=== PATIENT | male | born 1950 | race Caucasian/White ===

== ENCOUNTER 2017-07-28 18:20 | Inpatient (IN) ==
[2017-07-28] MEDS ORDERED: Ondansetron 4 MG/2 ML VIAL IVP ONE (19:23)
[2017-07-28] MEDS ORDERED: *HR* HYDROmorphone (PF) 1 MG/ML SYRINGE IVP ONE ×2 (19:23→22:31)
[2017-07-28] MEDS ORDERED: 0.9 % Sodium Chloride 1,000 ML IVC ONE (19:25)
--- NOTE | 2017-07-28 19:33 | Emergency Department Note ---
Disposition Clinical Impression: Fall, Back injury, Thoracic compression fracture, Lumbar compression fracture, Frail elderly Disposition: Admitted As Inpatient Referrals: Tab Starks Jr, MD [Primary Care Provider] - Forms: ED Satisfaction Letter General Adult HPI - General Chief complaint: ED Back Pain/Injury Stated complaint: fell off roof/back pain Time Seen by Provider: 07/28/17 18:57 Source: patient Limitations: no limitations - History of Present Illness HPI Narrative: 67-year-old male reports to the emergency department complaining he fell off a roof. He was about 9 or 10 feet up on a ladder when the ladder tipped backwards and he fell onto a deck. The patient complains of severe lower back pain. There is no history of loss of urine or stool. No weakness or numbness of the arms or legs. There is no history of laceration. He is not anticoagulated. There is no history of anterior chest pain or abdominal pain. Active pain is described. No loss of consciousness or confusion. The patient was in his usual good state of health prior to the event. He reports his male band sewer tried to break his fall but he fell hard onto the deck material. He describes the ladder tipping backwards and him falling over with it. Pain Scale: 10 - Related Data Home Medications Medication Instructions Recorded Confirmed Budesonide/Formoterol 80/4.5 2 puff IH BID 03/11/16 07/28/17 [Symbicort 80/4.5] Cyclobenzaprine [Flexeril] 10 mg PO TID PRN 03/11/16 07/28/17 Diclofenac Sodium [Voltaren] 1 appl TP TID PRN 03/11/16 07/28/17 OxyCODONE/APAP 5/325 [Percocet 1 - 2 tab PO Q6HR PRN 03/11/16 07/28/17 5/325 MG] Albuterol Sulfate [Proair Hfa] 1 puff IH DAILY 03/23/16 07/28/17 Ibuprofen [Motrin] 800 mg PO TID PRN 03/23/16 07/28/17 Losartan Potassium [Cozaar] 100 mg PO DAILY 03/23/16 07/28/17 Previous Rx's Medication Instructions Recorded Aspirin 81 mg PO DAILY #30 tab.chew 03/13/16 Carvedilol [Coreg] 12.5 mg PO BID #60 tablet 03/13/16 Isosorbide MONOnitrate (24 HR) 30 mg PO DAILY #30 tab.er.24h 03/13/16 [Imdur] Nitroglycerin 0.4 mg SL Q5MIN PRN #30 tab.subl 03/13/16 amLODIPine [Norvasc] 10 mg PO DAILY #30 tablet 03/13/16 Allergies Allergy/AdvReac Type Severity Reaction Status Date / Time codeine Allergy Irritable Verified 07/28/17 18:51 Sulfa (Sulfonamide Allergy Hives Verified 07/28/17 18:51 Antibiotics) All systems ED: reviewed and negative except as stated. Past Medical History - Past Medical History Medical history: Reports: COPD, coronary artery disease, hepatitis, hypertension Surgical history: Reports: appendectomy, cholecystectomy, orthopedic, other Psychiatric history: Reports: no psych history - Social History Smoking Status: Never smoker Smokeless Tobacco Status: No Alcohol use: Reports: occasionally Drug use: Reports: none Physical Exam - General Limitations: no limitations General appearance: alert, anxious (Appears to be uncomfortable, nearly crying) - Head Head exam: atraumatic, normocephalic, normal inspection - Eye Eye exam: Present: normal appearance, PERRL, EOMI. Absent: scleral icterus, conjunctival injection, nystagmus, miosis, mydriasis - ENT ENT exam: normal exam, normal oropharynx, mucous membranes moist, TM's normal bilaterally, normal external ear exam - Neck Neck exam: Present: normal inspection, full ROM, trachea midline. Absent: tenderness - Chest Chest inspection: Present: normal inspection, symmetric chest wall rise. Absent : tenderness - Respiratory Respiratory exam: Present: normal lung sounds bilaterally. Absent: respiratory distress, wheezes, accessory muscle use, prolonged expiratory phase - Cardiovascular Cardiovascular exam: Present: regular rate, normal rhythm, normal heart sounds - Abdominal Exam Abdominal exam: Present: soft, Non-Tender, normal bowel sounds. Absent: tenderness, distention, guarding, rebound, rigidity - Extremities Exam Extremities exam: Present: normal inspection, full ROM, normal capillary refill. Absent: tenderness, pedal edema, joint swelling, calf tenderness - Expanded Lower Extremity Exam Hip/Pelvis exam: Present: full ROM. Absent: tenderness Upper leg exam: Present: full ROM. Absent: tenderness Knee exam: Present: full ROM. Absent: tenderness Lower leg exam: Present: full ROM. Absent: tenderness Ankle exam: Present: full ROM. Absent: tenderness Foot/toe exam: Present: full ROM. Absent: tenderness Neurovascular/Tendon exam: Present: normal capillary refill. Absent: pulse deficit, motor deficit, sensory deficit, tendon deficit, extremity cold to touch , pallor - Back Exam Back exam: Present: normal inspection, tenderness, vertebral tenderness. Absent : CVA tenderness (R), CVA tenderness (L) - Neurological Exam Neurological exam: Present: alert, oriented X3, CN II-XII intact. Absent: motor sensory deficit - Skin Skin exam: Present: warm, dry, intact, normal color. Absent: rash, cyanosis, diaphoresis, erythema, pallor, mottled Course Vital Signs Temperature 98.8 F 07/28/17 18:52 Pulse Rate 73 07/28/17 18:52 Respiratory Rate 20 07/28/17 18:52 Blood Pressure 194/87 07/28/17 18:52 O2 Sat by Pulse Oximetry 97 07/28/17 18:52 Temperature 98.8 F 07/28/17 18:52 Pulse Rate 91 07/28/17 21:37 Respiratory Rate 16 07/28/17 21:37 Blood Pressure 178/91 07/28/17 21:37 O2 Sat by Pulse Oximetry 97 07/28/17 18:52 Oxygen Delivery Oxygen Delivery Room Air Medical Decision Making - [facility] Narrative Medical decision making narrative: The patient appears to be very uncomfortable in the ED, he was given Dilaudid and Zofran. He appears to have acute thoracic and lumbar compression fractures. He is neurologically intact. Based on his level of pain, age, and apparent acute fractures in more than one part of the spine, I thought it would be appropriate to admit the patient to the hospital for pain control. I discussed the case with Dr. Vidal, orthopedist cardiothoracic surgeon, who will act as sr technical sales consultant, I reviewed the case with Dr. Mckinley, hospitalist who has accepted the patient to his care. The patient is currently stable. Patient and family are favorable for admission. - Lab Data Lab results reviewed: Yes I reviewed the patient's lab results. Result diagrams: 07/28/17 19:42 07/28/17 19:42 Lab Results 07/28/17 07/28/17 07/28/17 Range/Units 19:00 19:42 19:42 WBC 11.0 (4.3-11.1) K/mcL RBC 4.35 (4.19-5.50) M/mcL Hgb 13.9 (12.9-16.9) g/dL Hct 40.4 (37.5-50.1) % MCV 92.9 (83.0-100.0) fL MCH 32.0 (28.0-33.3) pg MCHC 34.4 (31.6-35.5) g/dL RDW 12.2 (11.5-14.5) % Plt Count 205 (140-400) K/mcL MPV 10.1 (9.4-12.4) fL Immature Gran % 1.3 (0-4) % Seg Neutrophils % 78.0 % Lymphocytes % 12.2 % Monocytes % 7.3 % Eosinophils % 0.9 % Basophils % 0.3 % Neutrophils # 8.6 (1.6-8.9) K/mcL Lymphocytes # 1.4 (0.6-4.6) K/mcL Monocytes # 0.8 (0.0-1.3) K/mcL Eosinophils # 0.1 (0.0-0.6) K/mcL Basophils # 0.0 (0.0-0.2) K/mcL Immature Plt Fraction 4.9 (1.1-6.1) % PT 11.5 (9.4-12.1) Seconds INR 1.1 APTT 28.0 (26.0-36.0) Seconds Sodium (136-145) mEq/L Potassium (3.5-4.5) mEq/L Chloride (98-109) mEq/L Carbon Dioxide (19-29) mEq/L BUN (8-26) mg/dL Creatinine (0.72-1.25) mg/dL Est GFR ( Amer) (> 60) Est GFR (Non-Af Amer) (> 60) BUN/Creatinine Ratio (6-26) Glucose (70-99) mg/dL Calculated Osmolality (280-300) Calcium (8.6-10.8) mg/dL Total Bilirubin (0.2-1.2) mg/dL Direct Bilirubin (0.0-0.5) mg/dL Indirect Bilirubin (0.0-1.2) mg/dL AST (5-34) Units/L ALT (0-55) Units/L Alkaline Phosphatase (38-126) Units/L Serum Total Protein (6.0-8.3) g/dL Albumin (3.5-5.0) g/dL Globulin (2.4-3.5) g/dL Albumin/Globulin Ratio (1.1-2.2) Lipase (8-78) Units/L Urine Color Dark Yellow (Yellow) Urine Clarity Clear (Clear) Urine pH 6.0 (5.0-8.0) pH Units Ur Specific [place] > 1.030 H (1.010-1.025) Urine Protein 30 H (Neg-Trace) mg/dL Urine Glucose (UA) Normal (Normal) mg/dL Urine Ketones Trace H (Negative) mg/dL Urine Blood Negative (Negative) Urine Nitrite Negative (Negative) Urine Bilirubin Small H (Negative) Urine Urobilinogen Normal (Normal) mg/dL Ur Leukocyte Esterase Negative (Negative) Urine Microscopic RBC 3-5 H (0-3) per hpf Urine Microscopic WBC 5-15 H (0-3) per hpf Ur Squamous Epith Cells Many H (None-Few) per lpf Urine Bacteria None Seen (None-Few) per hpf Hyaline Casts None Seen (None-Few) per lpf Ur Culture Indicated? NO (NO) 07/28/17 Range/Units 19:42 WBC (4.3-11.1) K/mcL RBC (4.19-5.50) M/mcL Hgb (12.9-16.9) g/dL Hct (37.5-50.1) % MCV (83.0-100.0) fL MCH (28.0-33.3) pg MCHC (31.6-35.5) g/dL RDW (11.5-14.5) % Plt Count (140-400) K/mcL MPV (9.4-12.4) fL Immature Gran % (0-4) % Seg Neutrophils % % Lymphocytes % % Monocytes % % Eosinophils % % Basophils % % Neutrophils # (1.6-8.9) K/mcL Lymphocytes # (0.6-4.6) K/mcL Monocytes # (0.0-1.3) K/mcL Eosinophils # (0.0-0.6) K/mcL Basophils # (0.0-0.2) K/mcL Immature Plt Fraction (1.1-6.1) % PT (9.4-12.1) Seconds INR APTT (26.0-36.0) Seconds Sodium 142 (136-145) mEq/L Potassium 4.0 (3.5-4.5) mEq/L Chloride 107 (98-109) mEq/L Carbon Dioxide 25 (19-29) mEq/L BUN 15 (8-26) mg/dL Creatinine 0.97 (0.72-1.25) mg/dL Est GFR ( Amer) > 60 (> 60) Est GFR (Non-Af Amer) > 60 (> 60) BUN/Creatinine Ratio 15 (6-26) Glucose 104 H (70-99) mg/dL Calculated Osmolality 295 (280-300) Calcium 10.0 (8.6-10.8) mg/dL Total Bilirubin 1.0 (0.2-1.2) mg/dL Direct Bilirubin 0.5 (0.0-0.5) mg/dL Indirect Bilirubin 0.5 (0.0-1.2) mg/dL AST 51 H (5-34) Units/L ALT 43 (0-55) Units/L Alkaline Phosphatase 91 (38-126) Units/L Serum Total Protein 7.1 (6.0-8.3) g/dL Albumin 4.2 (3.5-5.0) g/dL Globulin 2.9 (2.4-3.5) g/dL Albumin/Globulin Ratio 1.4 (1.1-2.2) Lipase 13 (8-78) Units/L Urine Color (Yellow) Urine Clarity (Clear) Urine pH (5.0-8.0) pH Units Ur Specific [place] (1.010-1.025) Urine Protein (Neg-Trace) mg/dL Urine Glucose (UA) (Normal) mg/dL Urine Ketones (Negative) mg/dL Urine Blood (Negative) Urine Nitrite (Negative) Urine Bilirubin (Negative) Urine Urobilinogen (Normal) mg/dL Ur Leukocyte Esterase (Negative) Urine Microscopic RBC (0-3) per hpf Urine Microscopic WBC (0-3) per hpf Ur Squamous Epith Cells (None-Few) per lpf Urine Bacteria (None-Few) per hpf Hyaline Casts (None-Few) per lpf Ur Culture Indicated? (NO) - Radiology Data Radiology results reviewed: Yes I reviewed the patient's radiology results.
[2017-07-28 19:48] LABS: Basophils % 0.3 %; Eosinophils # 0.1 K/mcL (0.0-0.6); Eosinophils % 0.9 %; Hematocrit 40.4 % (37.5-50.1); Hemoglobin 13.9 g/dL (12.9-16.9); Immature Granulocytes % 1.3 % (0-4); Immature Platelets 4.9 % (1.1-6.1); Lymphocytes # 1.4 K/mcL (0.6-4.6); Lymphocytes % 12.2 %; Mean Corpuscular HGB Conc 34.4 g/dL (31.6-35.5); Mean Corpuscular Volume 92.9 fL (83.0-100.0); Mean Platelet Volume 10.1 fL (9.4-12.4); Monocytes # 0.8 K/mcL (0.0-1.3); Monocytes % 7.3 %; Neutrophils # 8.6 K/mcL (1.6-8.9); Platelet Count 205 K/mcL (140-400); Red Blood Count 4.35 M/mcL (4.19-5.50); Red Cell Distribution Width 12.2 % (11.5-14.5)
[2017-07-28 19:53] LABS: INR 1.1; Prothrombin Time 11.5 Seconds (9.4-12.1)
[2017-07-28 20:03] LABS: Alanine Aminotransferase 43 Units/L (0-55); Albumin 4.2 g/dL (3.5-5.0); Albumin/Globulin Ratio 1.4 (1.1-2.2); Alkaline Phosphatase 91 Units/L (38-126); Aspartate Amino Transferase 51 Units/L (5-34); BUN/Creatinine Ratio 15 (6-26); Bilirubin,Direct 0.5 mg/dL (0.0-0.5); Bilirubin,Indirect 0.5 mg/dL (0.0-1.2); Blood Urea Nitrogen 15 mg/dL (8-26); Carbon Dioxide 25 mEq/L (19-29); Chloride 107 mEq/L (98-109); Globulin 2.9 g/dL (2.4-3.5); Glucose 104 mg/dL (70-99); Lipase 13 Units/L (8-78); Osmolality,Calculated 295 (280-300); Sodium 142 mEq/L (136-145); Total Protein 7.1 g/dL (6.0-8.3); eGFR For African Americans > 60 (> 60); eGFR For Non-African Americans > 60 (> 60)
[2017-07-28 20:30] LABS: Bilirubin,Urine Small (Negative); Blood,Urine Negative (Negative); Clarity,Urine Clear (Clear); Color,Urine Dark Yellow (Yellow); Glucose,Urine (UA) Normal (Normal); Ketones,Urine Trace mg/dL (Negative); Leukocyte Esterase,Urine Negative (Negative); Nitrite,Urine Negative (Negative); Protein,Urine 30 mg/dL (Neg-Trace); Specific Gravity,Urine > 1.030 (1.010-1.025); Urobilinogen,Urine Normal (Normal)
[2017-07-28 20:31] LABS: Bacteria,Urine None Seen per hpf (None-Few); Hyaline Casts,Urine None Seen per lpf (None-Few); Squamous Epithelial Cell,Urine Many per lpf (None-Few)
[2017-07-28] MEDS ORDERED: Aspirin 325 MG TABLET PO ONE (22:27)
[2017-07-29] MEDS: *HR* HYDROmorphone (PF) 1 MG/ML SYRINGE IVP PRN ×6 (02:00→22:16)
[2017-07-29] MEDS ORDERED: Acetaminophen 325 MG TABLET PO PRN (07:36)
[2017-07-29] MEDS ORDERED: Naloxone 0.4 MG/ML INJ IVP PRN (07:36)
[2017-07-29] MEDS ORDERED: Nitroglycerin 0.4 MG TAB.SUBL SL PRN (07:39)
[2017-07-29] MEDS ORDERED: Diclofenac Sodium [Voltaren] 1 APPL TP PRN (07:39)
[2017-07-29] MEDS: Budesonide/Formoterol 80/4.5 MDI IH SCH ×2 (08:20→20:13)
[2017-07-29] MEDS: amLODIPine 5 MG TABLET PO SCH (08:20)
[2017-07-29] MEDS: Isosorbide MONOnitrate (24 HR) 30 MG TAB.ER.24H PO SCH (08:20)
--- NOTE | 2017-07-29 09:15 | Internal Med History&Physical ---
Date of Encounter: 07/29/17 Time of Encounter: 09:15 Assessment and Plan (1) Thoracic compression fracture Current visit: Yes Status: Acute T12 compression fracture. Pain control. Supportive care. Orthopedics has been consulted. We will follow recommendations. High risk for complications due to use of intravenous narcotic medications for pain control. Qualifiers: Encounter type: initial encounter Fracture type: closed Qualified Code(s) : S22.000A - Wedge compression fracture of unspecified thoracic vertebra, initial encounter for closed fracture (2) Lumbar compression fracture Current visit: Yes Status: Acute L2 vertebral fracture. Management as above with orthopedic evaluation and pain control Qualifiers: Encounter type: initial encounter Lumbar vertebra fracture level: L2 Fracture type: closed Qualified Code(s): S32.020A - Wedge compression fracture of second lumbar vertebra, initial encounter for closed fracture (3) Fall Current visit: Yes Status: Acute Mechanical fall resulting in vertebral compression fracture. Pain control. Monitor vital signs closely. Qualifiers: Encounter type: initial encounter Qualified Code(s): W19.XXXA - Unspecified fall, initial encounter (4) Essential hypertension Current visit: Yes Status: Chronic Monitor blood pressure. Resume home medications. Given his history of coronary artery disease with nonobstructive, we will get 2-D echocardiogram for preoperative evaluation in case patient is recommended surgery. (5) DVT prophylaxis Current visit: Yes Status: Acute With SCDs for now pending orthopedic evaluation. Internal Medicine - H&P: HPI Chief complaint: Back pain after fall Admitted From: Emergency Dept Plans for Post Hospital Care: Home History of present illness: Mr. Lewis is a 67 year old male patient with a history of essential hypertension who presented to the ER after falling on his roof while he was trying to climb on a ladder. He fell about 10 feet and developed intense lower back pain. He denies any lower extremity weakness or numbness. No bowel or bladder incontinence. It was a mechanical fall and patient did not lose any consciousness. He did not have any prodromal symptoms or failure dizzy or lightheaded. Pain was 10 out of 10 in severity on arrival to the ER. He received pain medications in the ER and that brought his pain down to 8 out of 10 in severity where it has remained since. Patient does not have any history of heart disease. He did undergo cardiac catheterization last year which showed nonobstructive coronary artery disease. He denies any orthopnea or PND. He is able to climb a flight of stairs without any difficulty but does get some shortness of breath towards the end. No pedal edema reported. Past Med Surg Social Fam HX - Past Medical History Attestation: Yes The following information was validated with the patient. Source: patient Medical history: COPD, coronary artery disease, hepatitis, hypertension Psychiatric history: no psych history - Past Surgical History Surgical History: appendectomy, cholecystectomy, orthopedic, other - Social History Smoking Status: Never smoker Smokeless Tobacco Status: No Alcohol use: occasionally Drug use: none - Family History Father Adopted: Yes Living Status: Hx Family Cardiac Disorders: Yes Internal Medicine - H&P: Meds Budesonide/Formoterol 80/4.5 [Symbicort 80/4.5] 2 puff IH BID 03/11/16 [History ] Cyclobenzaprine [Flexeril] 10 mg PO TID PRN 03/11/16 [History] Diclofenac Sodium [Voltaren] 1 appl TP TID PRN 03/11/16 [History] OxyCODONE/APAP 5/325 [Percocet 5/325 MG] 1 - 2 tab PO Q6HR PRN 03/11/16 [History ] Aspirin 81 mg PO DAILY #30 tab.chew 03/13/16 [Rx] Carvedilol [Coreg] 12.5 mg PO BID #60 tablet 03/13/16 [Rx] Isosorbide MONOnitrate (24 HR) [Imdur] 30 mg PO DAILY #30 tab.er.24h 03/13/16 [ Rx] Nitroglycerin 0.4 mg SL Q5MIN PRN #30 tab.subl 03/13/16 [Rx] amLODIPine [Norvasc] 10 mg PO DAILY #30 tablet 03/13/16 [Rx] Albuterol Sulfate [Proair Hfa] 1 puff IH DAILY 03/23/16 [History] Ibuprofen [Motrin] 800 mg PO TID PRN 03/23/16 [History] Losartan Potassium [Cozaar] 100 mg PO DAILY 03/23/16 [History] 3 Allergy/AdvReac Type Severity Reaction Status Date / Time codeine Allergy Irritable Verified 07/28/17 18:51 Sulfa (Sulfonamide Allergy Hives Verified 07/28/17 18:51 Antibiotics) All Systems PM: A 10-system review of systems was performed and is negative for pertinent findings except as documented above in the HPI. - Constitutional Constitutional: no chills, no fever(s), no night sweats - EENT Eyes: no change in vision, no discharge, no pain, no photophobia Ears: no ear discharge, no ear pain, no tinnitus Nose, mouth and throat: no dysphagia, no nasal discharge, no neck pain, no sore throat - Cardiovascular Cardiovascular ROS IM: no chest pain, no diaphoresis, no dyspnea, no lightheadedness, no palpitations, no syncope - Respiratory Respiratory: no cough, no dyspnea, no wheezing, no excessive phlegm production - Gastrointestinal Gastrointestinal: no abdominal pain, no diarrhea, no hematemesis, no hematochezia, no melena, no nausea, no vomiting - Musculoskeletal Musculoskeletal ROS IM: back pain, no numbness, no tingling - Integumentary Integumentary IM: no rash, no unusual bruising - Neurological Neurological ROS: no confusion, no convulsions, no focal weakness, no numbness, no tingling, no tremor(s) - Hematologic/Lymphatic Hematologic/Lymphatic: no easy bruising - Constitutional Vitals: Temp Pulse Resp BP Pulse Ox 98.0 F 77 17 123/74 96 07/29/17 07:44 07/29/17 07:44 07/29/17 08:21 07/29/17 07:44 07/29/17 08:21 General appearance: Present: cooperative, A&O X 3, pleasant, answers questions appropriately Exam: Moderate distress - Neck Neck exam general surgery: Present: supple, trachea midline. Absent: lymphadenopathy - Respiratory Respiratory exam: Present: CTAB. Absent: accessory muscle use, rales, rhonchi, wheezes - Cardiovascular Cardiovascular exam: Present: RRR, +S1, +S2. Absent: diastolic murmur, gallop, rubs, systolic murmur - GI/Abdominal GI/Abdominal exam: Present: normal bowel sounds, soft, no peritoneal signs. Absent: distended, tenderness - Back Exam Back exam: Present: paraspinal tenderness, vertebral tenderness (Lower thoracic and lumbar region) - Neurological Exam Neurological exam: Present: CN II-XII intact, oriented X3, no focal deficits, strengths equal and symetr throughout. Absent: facial droop, speech deficit - Skin Skin exam: Present: dry, intact Internal Med - H&P Results - Labs CBC & Chem 7: 07/28/17 19:42 07/28/17 19:42 - Impressions Impressions Chest CTA 07/28/17 19:27 IMPRESSION: 1. Please see separate CT of the thoracic and lumbar spine for further details of compression deformities involving the lower thoracic and lumbar spine. 2. Otherwise no acute traumatic findings within the chest, abdomen or pelvis. D/ / 07/28/2017 22:08:21 Andrés Ndiaye MD / najma Interpreting Provider: Andrés Ndiaye MD Abdomen/Pelvis CTA 07/28/17 19:28 IMPRESSION: 1. Please see separate CT of the thoracic and lumbar spine for further details of compression deformities involving the lower thoracic and lumbar spine. 2. Otherwise no acute traumatic findings within the chest, abdomen or pelvis. D/ / 07/28/2017 22:08:21 Andrés Ndiaye MD / najma Interpreting Provider: Andrés Ndiaye MD Thoracic Spine CT 07/28/17 19:28 IMPRESSION: T12 compression fracture with anterior wedging and moderate loss of vertebral body height appears to be chronic. No evidence of acute fracture. Multilevel degenerative changes of the thoracic spine. D/ / 07/28/2017 21:58:57 Patricia Suazo MD / najma Interpreting Provider: Patricia Suazo MD Head CT 07/28/17 19:29 IMPRESSION: No acute intracranial abnormality. D/ / 07/28/2017 21:50:38 Patricia Suazo MD / najma Interpreting Provider: Patricia Suazo MD Lumbar Spine CT 07/28/17 19:29 IMPRESSION: T12 and L2 vertebral body fractures as above. Mild depression of the superior endplate of L1 which has the appearance more of a Schmorl's node and fracture. D/ / María Hines MD / María Hines MD Interpreting Provider: María Hines MD Cervical Spine CT 07/28/17 19:30 IMPRESSION: No acute abnormality of the cervical spine. D/ / Rocio Garza Cha, MD / Rocio Garza Cha, MD Interpreting Provider: Rocio Garza Cha, MD
[2017-07-29] MEDS: Ketorolac 30 MG/ML VIAL IVP PRN ×2 (11:14→17:58)
[2017-07-29] MEDS ORDERED: Perflutren Lipid Microsphere 1.3 ML in 0.9 % Sodium Chloride 8.7 ML IVP ONE (12:10)
--- NOTE | 2017-07-29 12:55 | Orthopedic Consult Note ---
Date of Encounter: 07/29/17 Time of Encounter: 12:44 History of Present Illness Chief complaint: Back pain HPI: Mr. Lewis is a 67 year old male with acute onset of back pain after having fallen probably 9-10 feet off a roof. The patient reportedly fell onto his back. He thinks that his fall was broken somewhat by his son who slowed him down. He had immediate onset of back pain. He denies any leg pain. Patient does have a history of chronic back pain. He has been evaluated multiple times in the past. He does take chronic narcotics for combination of back and leg pain. He denies any bowel or bladder complaints. For complete history and physical data please refer the formal medical chart. Examination reveals an obese male in moderate distress while lying upright in the hospital bed. No evidence of radicular pain distally. I reviewed multiple studies including thoracic spine CT and lumbar spine CT as well as a cervical spine CT and a thoracic CT/angiogram. In addition, I reviewed previous x-rays and MRI of his lumbar spine. In summary there is what appears to be a mild anterior deformity of T11 of maybe 20-25%. T12 shows what appears to be a more acute compression fracture of probably 50%. L1 shows some similar loss of anterior height, this is maybe 25% as well and has a more subacute appearance. There is evidence of Schmorling of the inferior endplate of T12 as well as the superior endplate of L1. These may be suggestive of a more chronic process of the L1 vertebral body. L2 shows probably 30-40% compression fracture. There is no evidence of posterior column involvement nor evidence of retropulsion. All areas of the spine show evidence of significant degenerative disc and degenerative joint disease with varying levels of central and foraminal stenosis. Impression: Multiple thoracic and lumbar compression fractures, suspect a combination of acute and subacute injuries. This is superimposed upon significant cervical, thoracic and lumbar spondylosis Recommendation: At this time there is no need for immediate intervention other than pain management. The patient may be a candidate for vertebral plasty due to the multiple compression fractures identified. An MRI would be viable in helping determine if these are acute findings. The patient is not a good candidate for any type of bracing due to his large body habitus. The patient is not narcotic naive and may need an increased dose of narcotics, a extended release medication may offer him better pain management. I discussed with the patient that he needs to be careful with narcotics as well as with relative bed rest and inactivity as it can create constipation or obstipation. Also need to consider VTE prophylaxis. I will go ahead and order the MRI and review the results when completed and make further recommendations pending that study. Thank you very much for allowing me to see and care for Mr. Lewis. Sincerely, Salomon Vidal,DO Past Med Surg Social Fam HX - Past Medical History Medical history: COPD, coronary artery disease, hepatitis, hypertension Psychiatric history: no psych history - Past Surgical History Surgical History: appendectomy, cholecystectomy, orthopedic, other - Social History Smoking Status: Never smoker Smokeless Tobacco Status: No Alcohol use: occasionally Drug use: none - Family History Father Adopted: Yes Living Status: Hx Family Cardiac Disorders: Yes Medications and Allergies Budesonide/Formoterol 80/4.5 [Symbicort 80/4.5] 2 puff IH BID 03/11/16 [History ] Cyclobenzaprine [Flexeril] 10 mg PO TID PRN 03/11/16 [History] Diclofenac Sodium [Voltaren] 1 appl TP TID PRN 03/11/16 [History] OxyCODONE/APAP 5/325 [Percocet 5/325 MG] 1 - 2 tab PO Q6HR PRN 03/11/16 [History ] Aspirin 81 mg PO DAILY #30 tab.chew 03/13/16 [Rx] Carvedilol [Coreg] 12.5 mg PO BID #60 tablet 03/13/16 [Rx] Isosorbide MONOnitrate (24 HR) [Imdur] 30 mg PO DAILY #30 tab.er.24h 03/13/16 [ Rx] Nitroglycerin 0.4 mg SL Q5MIN PRN #30 tab.subl 03/13/16 [Rx] amLODIPine [Norvasc] 10 mg PO DAILY #30 tablet 03/13/16 [Rx] Albuterol Sulfate [Proair Hfa] 1 puff IH DAILY 03/23/16 [History] Ibuprofen [Motrin] 800 mg PO TID PRN 03/23/16 [History] Losartan Potassium [Cozaar] 100 mg PO DAILY 03/23/16 [History] 3 Allergy/AdvReac Type Severity Reaction Status Date / Time codeine Allergy Irritable Verified 07/28/17 18:51 Sulfa (Sulfonamide Allergy Hives Verified 07/28/17 18:51 Antibiotics) All Systems Reviewed: A 10-system review of systems was performed and is negative for pertinent findings except as documented above in the HPI. Physical Exam - Constitutional Vitals: Temp Pulse Resp BP Pulse Ox 98.8 F 58 16 150/69 91 07/29/17 11:07 07/29/17 11:07 07/29/17 11:07 07/29/17 11:07 07/29/17 11:07 Results - Labs Result Diagrams: 07/28/17 19:42 07/28/17 19:42 Labs: Abnormal lab results Glucose 104 mg/dL (70-99) H 07/28/17 19:42 AST 51 Units/L (5-34) H 07/28/17 19:42 Ur Specific [place] > 1.030 (1.010-1.025) H 07/28/17 19:00 Urine Protein 30 mg/dL (Neg-Trace) H 07/28/17 19:00 Urine Ketones Trace mg/dL (Negative) H 07/28/17 19:00 Urine Bilirubin Small (Negative) H 07/28/17 19:00 Urine Microscopic RBC 3-5 per hpf (0-3) H 07/28/17 19:00 Urine Microscopic WBC 5-15 per hpf (0-3) H 07/28/17 19:00 Ur Squamous Epith Cells Many per lpf (None-Few) H 07/28/17 19:00 All other labs normal. - Diagnostic results CT scan - cervical: report reviewed, image reviewed Thoracic AP/Lateral x-ray: other (ct Scan) CT Scan - lumbar: report reviewed, image reviewed Consult Discharge Plan - Plan Referrals: Tab Starks Jr, MD [Primary Care Provider] -
[2017-07-29] MEDS: *HR* Heparin 5,000 UNIT/ML VIAL SQ SCH (17:58)
[2017-07-29] MEDS: *HR* OxyCODONE/APAP 10/325 TABLET PO PRN (20:45)
[2017-07-30] MEDS: *HR* Heparin 5,000 UNIT/ML VIAL SQ SCH ×2 (06:10→17:35)
[2017-07-30] MEDS: Ketorolac 30 MG/ML VIAL IVP PRN ×3 (06:10→18:15)
[2017-07-30] MEDS: Budesonide/Formoterol 80/4.5 MDI IH SCH ×2 (07:54→21:54)
[2017-07-30] MEDS: *HR* OxyCODONE/APAP 10/325 TABLET PO PRN ×3 (09:26→21:01)
[2017-07-30] MEDS: amLODIPine 5 MG TABLET PO SCH (09:26)
[2017-07-30] MEDS: Isosorbide MONOnitrate (24 HR) 30 MG TAB.ER.24H PO SCH (09:26)
--- NOTE | 2017-07-30 11:58 | Internal Med Progress Note ---
Date of Encounter: 07/30/17 Time of Encounter: 11:55 - Assessment and plan (1) Thoracic compression fracture Current Visit: Yes Status: Acute Assessment and plan: Continues to have significant pain. We will place patient on long-acting oxycodone and stop Dilaudid. Place patient on intravenous morphine instead for breakthrough pain. Orthopedic consult appreciated. MRI of the spine shows acute compression fractures of T12 and L1, L2 and L4 vertebral bodies. No evidence of spinal cord injury or hematoma. Multilevel degenerative spinal canal stenosis also present. We will follow orthopedic recommendations to see if patient would be a candidate for vertebroplasty. High risk for complications due to intravenous narcotic use. Qualifiers: Encounter type: initial encounter Fracture type: closed Qualified Code(s) : S22.000A - Wedge compression fracture of unspecified thoracic vertebra, initial encounter for closed fracture (2) Lumbar compression fracture Current Visit: Yes Status: Acute Qualifiers: Encounter type: initial encounter Lumbar vertebra fracture level: L2 Fracture type: closed Qualified Code(s): S32.020A - Wedge compression fracture of second lumbar vertebra, initial encounter for closed fracture (3) Fall Current Visit: Yes Status: Acute Assessment and plan: Status post mechanical fall. Will consult physical therapy whenever patient is cleared by orthopedics. Qualifiers: Encounter type: initial encounter Qualified Code(s): W19.XXXA - Unspecified fall, initial encounter (4) Essential hypertension Current Visit: Yes Status: Chronic Assessment and plan: Blood pressure remains elevated. Likely elevated due to pain. Patient on amlodipine, losartan and Imdur. We will start him on hydrochlorothiazide if persistently elevated. (5) DVT prophylaxis Current Visit: Yes Status: Acute Assessment and plan: subcutaneous heparin - Subjective Interval history: Patient is awake and alert. Continues to have severe back pain. Worse with any kind of movement. No bowel or bladder incontinence. No radicular pain. Has not been wanting to take Dilaudid because of concerns of addiction. - Constitutional Vitals: Temp Pulse Resp BP Pulse Ox 98.9 F 67 18 146/78 91 07/30/17 06:33 07/30/17 06:33 07/30/17 07:57 07/30/17 06:33 07/30/17 07:57 General appearance: Present: cooperative, A&O X 3, pleasant, answers questions appropriately Exam: Moderate distress - Neck Neck exam general surgery: Present: supple, trachea midline. Absent: lymphadenopathy - Respiratory Respiratory exam: Present: CTAB. Absent: accessory muscle use, rales, rhonchi, wheezes - Cardiovascular Cardiovascular exam: Present: RRR, +S1, +S2. Absent: diastolic murmur, gallop, rubs, systolic murmur - GI/Abdominal GI/Abdominal exam: Present: normal bowel sounds, soft, no peritoneal signs. Absent: distended, tenderness - Extremities Exam Extremities exam: Present: warm, radial pulses palpable and symmetrical. Absent : calf tenderness, cyanotic, pedal edema - Neurological Exam Neurological exam: Present: alert, CN II-XII intact, oriented X3, no focal deficits, strengths equal and symetr throughout. Absent: facial droop, speech deficit Internal Medicine: Result - Labs CBC & Chem 7: 07/28/17 19:42 07/28/17 19:42 - ABG Interpretation ABG results: PT/INR, D-dimer PT 11.5 Seconds (9.4-12.1) 07/28/17 19:42 - Impressions Impressions Echocardiogram 07/29/17 09:18 Impressions: Normal LV systolic function, LVEF 70%. Mild concentric left ventricular hypertrophy. Mild left ventricular diastolic dysfunction. Normal right ventricular size and function. No significant valvular dysfunction. Unable to estimate RVSP due to lack of TR jet. Left Ventricular Wall Motion: Rest Echo Findings All wall segments showed normal motion. Findings: Study Quality * Suboptimal echo windows. Echo contrast was used. ECG Findings * Normal sinus rhythm. Left Ventricle * Normal LV systolic function, LVEF 70%. * Normal LV chamber size. * Mild concentric left ventricular hypertrophy. * Mild left ventricular diastolic dysfunction. Right Ventricle * Normal right ventricular size and function. Left Atrium * Normal left atrial size. Right Atrium * Normal right atrial size. Aorta * Normally sized aortic root. Pericardium * There is no pericardial effusion present. IVC * The IVC is not dilated. Aortic Valve * Aortic valve not well visualized. * No aortic stenosis. * No aortic regurgitation. Mitral Valve * Normal mitral valve structure. * No mitral stenosis. * No mitral regurgitation. Tricuspid Valve * Normal tricuspid valve structure. * No tricuspid stenosis. * Trace tricuspid regurgitation. * Unable to estimate RVSP due to lack of TR jet. Pulmonic Valve * Pulmonic valve not well visualized. * No pulmonic stenosis. * No pulmonic regurgitation. Lumbar Spine MRI 07/29/17 12:59 IMPRESSION: 1. Acute compression fractures of the T12, L1, L 2, and L4 vertebral bodies with moderate T12 and mild L1 anterior vertebral body height loss similar to prior CT. No posterior cortex retropulsion at any level. 2. Focal disruption of the anterior longitudinal ligament and anterior annulus at L1-2. 3. No evidence of spinal cord injury or hematoma within the spinal canal. 4. Multilevel degenerative spinal canal stenosis as detailed above, moderate at L1-2 and L2-3 and mild at T12-L1 and L3-4. 5. Multilevel degenerative neural foraminal narrowing as detailed above and greatest involving the left L3 and L5 neural foramina where it is moderate. D/ / Philipp Dean MD / Philipp Dean MD Interpreting Provider: Philipp Dean MD Consult Discharge Plan - Plan Referrals: Tab Starks Jr, MD [Primary Care Provider] -
--- NOTE | 2017-07-30 12:37 | Orthopedics Progress Note ---
Date of Encounter: 07/30/17 Time of Encounter: 12:32 Subjective Principal diagnosis: Multiple lumbar compression fractures Interval history: Patient was seen in follow-up regarding his multiple spine compression fractures. He is having significant pain. He is able to ambulate quite slowly. Vital signs are stable, he is afebrile. does have marked tenderness to palpation of his tobacco lumbar and lumbar spine. No evidence of radiculopathy. MRI was completed. This shows acute compression fractures of T12, L1, L2 and L4. Predominant compression is at the T12 and L1 vertebrae. Also evidence of previous significant degenerative joint and degenerative disc disease with both foraminal and central stenosis. Impression: Multiple adjacent thoracolumbar compression fractures with underlying lumbar and thoracic spondylosis Recommendation: I am recommending the patient be seen and evaluated by Dr. Wang in regards to possible vertebral plasty. Individually the compression fractures are not severe but the combination of multiple adjacent fractures with the marked amount of pain caused I think makes him a candidate for intervention. In the meantime would continue to work on pain management. Discussed at length with the patient we will agrees and has requested we have Dr. Wang see him in consultation. Objective Vital signs: Vital Signs Temp Pulse Resp BP Pulse Ox 07/30/17 11:56 98.4 F 68 16 160/77 93 07/30/17 07:57 18 91 07/30/17 06:33 98.9 F 67 16 146/78 95 07/30/17 01:00 98.8 F 61 15 164/70 93 07/29/17 20:13 92 07/29/17 19:00 98.0 F 62 17 169/89 93 07/29/17 16:11 98.0 F 69 16 157/82 93 07/29/17 13:00 98 Intake and Output 07/29/17 07/30/17 07/30/17 23:59 07:59 15:59 Other: # Voids 1 1 - Labs CBC & BMP: 07/28/17 19:42 07/28/17 19:42 Labs: Abnormal lab results Glucose 104 mg/dL (70-99) H 07/28/17 19:42 AST 51 Units/L (5-34) H 07/28/17 19:42 Ur Specific [place] > 1.030 (1.010-1.025) H 07/28/17 19:00 Urine Protein 30 mg/dL (Neg-Trace) H 07/28/17 19:00 Urine Ketones Trace mg/dL (Negative) H 07/28/17 19:00 Urine Bilirubin Small (Negative) H 07/28/17 19:00 Urine Microscopic RBC 3-5 per hpf (0-3) H 07/28/17 19:00 Urine Microscopic WBC 5-15 per hpf (0-3) H 07/28/17 19:00 Ur Squamous Epith Cells Many per lpf (None-Few) H 07/28/17 19:00 Consult Discharge Plan - Plan Referrals: Tab Starks Jr, MD [Primary Care Provider] -
[2017-07-30] MEDS: *HR* OxyCODONE ER (12 HR) 10 MG TABLET PO SCH (17:35)
[2017-07-30] MEDS: *HR* Morphine 2 MG/ML SYRINGE IVP PRN (22:31)
--- NOTE | 2017-07-31 06:24 | Electrocardiograph Report ---
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
[2017-07-31] MEDS: *HR* OxyCODONE ER (12 HR) 10 MG TABLET PO SCH ×3 (06:38→20:57)
[2017-07-31] MEDS: *HR* Heparin 5,000 UNIT/ML VIAL SQ SCH ×2 (06:38→18:47)
[2017-07-31] MEDS: Ketorolac 30 MG/ML VIAL IVP PRN ×3 (06:38→18:47)
[2017-07-31] MEDS: Isosorbide MONOnitrate (24 HR) 30 MG TAB.ER.24H PO SCH (09:20)
[2017-07-31] MEDS: hydroCHLOROthiazide 25 MG TABLET PO SCH (09:20)
[2017-07-31] MEDS: amLODIPine 5 MG TABLET PO SCH (09:20)
[2017-07-31] MEDS: Budesonide/Formoterol 80/4.5 MDI IH SCH ×2 (10:52→20:34)
[2017-07-31] MEDS: *HR* OxyCODONE/APAP 10/325 TABLET PO PRN ×2 (12:20→18:47)
--- NOTE | 2017-07-31 15:19 | Internal Med Progress Note ---
Date of Encounter: 07/31/17 Time of Encounter: 08:20 - Assessment and plan (1) Thoracic compression fracture Current Visit: Yes Status: Acute Assessment and plan: Remains in pain. We will follow spine surgery recommendations. We will increase long-acting oxycodone dosage. Continue morphine and Toradol as needed intravenously for pain control. Moderate risk for complications. Qualifiers: Encounter type: initial encounter Fracture type: closed Qualified Code(s) : S22.000A - Wedge compression fracture of unspecified thoracic vertebra, initial encounter for closed fracture (2) Lumbar compression fracture Current Visit: Yes Status: Acute Qualifiers: Encounter type: initial encounter Lumbar vertebra fracture level: L2 Fracture type: closed Qualified Code(s): S32.020A - Wedge compression fracture of second lumbar vertebra, initial encounter for closed fracture (3) Fall Current Visit: Yes Status: Acute Qualifiers: Encounter type: initial encounter Qualified Code(s): W19.XXXA - Unspecified fall, initial encounter (4) Essential hypertension Current Visit: Yes Status: Chronic Assessment and plan: Blood pressure is better controlled today. Continue hydrochlorothiazide, amlodipine, carvedilol and losartan. (5) DVT prophylaxis Current Visit: Yes Status: Acute - Subjective Interval history: Patient continues to have low back pain although better controlled. No incontinence. No lower extremity weakness. Awaiting evaluation by spine surgery. - Constitutional Vitals: Temp Pulse Resp BP Pulse Ox 98.7 F 53 16 135/75 93 07/31/17 11:26 07/31/17 11:26 07/31/17 11:26 07/31/17 11:26 07/31/17 11:26 General appearance: Present: cooperative, A&O X 3, pleasant, answers questions appropriately - Neck Neck exam general surgery: Present: supple, trachea midline. Absent: lymphadenopathy - Respiratory Respiratory exam: Present: CTAB. Absent: accessory muscle use, rales, rhonchi, wheezes - Cardiovascular Cardiovascular exam: Present: RRR, +S1, +S2. Absent: diastolic murmur, gallop, rubs, systolic murmur - GI/Abdominal GI/Abdominal exam: Present: normal bowel sounds, soft, no peritoneal signs. Absent: distended, tenderness - Extremities Exam Extremities exam: Present: warm, radial pulses palpable and symmetrical. Absent : calf tenderness, cyanotic, pedal edema Internal Medicine: Result - Labs CBC & Chem 7: 07/28/17 19:42 07/28/17 19:42 - ABG Interpretation ABG results: PT/INR, D-dimer PT 11.5 Seconds (9.4-12.1) 07/28/17 19:42 Consult Discharge Plan - Plan Referrals: Tab Starks Jr, MD [Primary Care Provider] -
--- NOTE | 2017-07-31 16:16 | Spinal Consult Note ---
Date of Encounter: 07/31/17 Time of Encounter: 16:12 Assessment and Plan (1) Vertebral compression fracture Current Visit: Yes Status: Acute On exam he is in obvious distress secondary to low back pain. Afebrile vital signs stable. His tenderness to palpation along the midline of the thoracic or lumbar spine. He is neurovascularly intact with regard to his bilateral lower extremities. His hips move symmetrically. He has no clonus. MRI of the thoracolumbar spine reveals acute compression fractures at T12, L1, and L2. There are multilevel degenerative changes seen. Impression: 1) acute vertebral compression fracture secondary to trauma. Plan: I had a long discussion with the patient regarding treatment options which include bracing with analgesics, analgesics alone, or vertebral augmentation via kyphoplasty. The patient elects to proceed with a kyphoplasty procedure of T12, L1, and L2. Risks benefits possible competitions and alternatives were discussed and the patient would like to proceed. We will do as an add-on procedure tomorrow. Patient understands he must be medically optimized and cleared prior to surgical intervention. Qualifiers: Encounter type: initial encounter Qualified Code(s): M48.50XA - Collapsed vertebra, not elsewhere classified, site unspecified, initial encounter for fracture History of Present Illness Chief complaint: Severe back pain HPI: Mr. Lewis is a 67 year old male Who had significant back pain after a fall from height. He complains of sharp, ache-like pain anytime he moves. His pain is reasonable when laying in bed still and taking analgesic medications. He denies radicular symptoms, or bowel bladder symptomatology. We are asked to see secondary to fractures found on his MRI examination. Past Med Surg Social Fam HX - Past Medical History Medical history: COPD, coronary artery disease, hepatitis, hypertension Psychiatric history: no psych history - Past Surgical History Surgical History: appendectomy, cholecystectomy, orthopedic, other - Social History Smoking Status: Never smoker Smokeless Tobacco Status: No Alcohol use: occasionally Drug use: none - Family History Father Adopted: Yes Living Status: Hx Family Cardiac Disorders: Yes Medications and Allergies Budesonide/Formoterol 80/4.5 [Symbicort 80/4.5] 2 puff IH BID 03/11/16 [History ] Cyclobenzaprine [Flexeril] 10 mg PO TID PRN 03/11/16 [History] Diclofenac Sodium [Voltaren] 1 appl TP TID PRN 03/11/16 [History] OxyCODONE/APAP 5/325 [Percocet 5/325 MG] 1 - 2 tab PO Q6HR PRN 03/11/16 [History ] Aspirin 81 mg PO DAILY #30 tab.chew 03/13/16 [Rx] Carvedilol [Coreg] 12.5 mg PO BID #60 tablet 03/13/16 [Rx] Isosorbide MONOnitrate (24 HR) [Imdur] 30 mg PO DAILY #30 tab.er.24h 03/13/16 [ Rx] Nitroglycerin 0.4 mg SL Q5MIN PRN #30 tab.subl 03/13/16 [Rx] amLODIPine [Norvasc] 10 mg PO DAILY #30 tablet 03/13/16 [Rx] Albuterol Sulfate [Proair Hfa] 1 puff IH DAILY 03/23/16 [History] Ibuprofen [Motrin] 800 mg PO TID PRN 03/23/16 [History] Losartan Potassium [Cozaar] 100 mg PO DAILY 03/23/16 [History] 3 Allergy/AdvReac Type Severity Reaction Status Date / Time codeine Allergy Irritable Verified 07/28/17 18:51 Sulfa (Sulfonamide Allergy Hives Verified 07/28/17 18:51 Antibiotics) Results - Labs Result Diagrams: 07/28/17 19:42 07/28/17 19:42 Labs: Abnormal lab results Glucose 104 mg/dL (70-99) H 07/28/17 19:42 AST 51 Units/L (5-34) H 07/28/17 19:42 Ur Specific [place] > 1.030 (1.010-1.025) H 07/28/17 19:00 Urine Protein 30 mg/dL (Neg-Trace) H 07/28/17 19:00 Urine Ketones Trace mg/dL (Negative) H 07/28/17 19:00 Urine Bilirubin Small (Negative) H 07/28/17 19:00 Urine Microscopic RBC 3-5 per hpf (0-3) H 07/28/17 19:00 Urine Microscopic WBC 5-15 per hpf (0-3) H 07/28/17 19:00 Ur Squamous Epith Cells Many per lpf (None-Few) H 07/28/17 19:00 All other labs normal. Consult Discharge Plan - Plan Referrals: Tab Starks Jr, MD [Primary Care Provider] -
--- NOTE | 2017-07-31 20:38 | Anesthesia Evaluation PreOp ---
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) Other Medical History: Hepatic (Hep C), Diabetes Type II Anesthesia History: No Prior Anesthetic Complications, Past Anesthesia (Appy, GB , LEFT tkr) Alcohol Use: occasionally Drug use: none Medications and Allergies Budesonide/Formoterol 80/4.5 [Symbicort 80/4.5] 2 puff IH BID 03/11/16 [History ] Cyclobenzaprine [Flexeril] 10 mg PO TID PRN 03/11/16 [History] Diclofenac Sodium [Voltaren] 1 appl TP TID PRN 03/11/16 [History] OxyCODONE/APAP 5/325 [Percocet 5/325 MG] 1 - 2 tab PO Q6HR PRN 03/11/16 [History ] Aspirin 81 mg PO DAILY #30 tab.chew 03/13/16 [Rx] Carvedilol [Coreg] 12.5 mg PO BID #60 tablet 03/13/16 [Rx] Isosorbide MONOnitrate (24 HR) [Imdur] 30 mg PO DAILY #30 tab.er.24h 03/13/16 [ Rx] Nitroglycerin 0.4 mg SL Q5MIN PRN #30 tab.subl 03/13/16 [Rx] amLODIPine [Norvasc] 10 mg PO DAILY #30 tablet 03/13/16 [Rx] Albuterol Sulfate [Proair Hfa] 1 puff IH DAILY 03/23/16 [History] Ibuprofen [Motrin] 800 mg PO TID PRN 03/23/16 [History] Losartan Potassium [Cozaar] 100 mg PO DAILY 03/23/16 [History] 3 Allergy/AdvReac Type Severity Reaction Status Date / Time codeine Allergy Irritable Verified 07/28/17 18:51 Sulfa (Sulfonamide Allergy Hives Verified 07/28/17 18:51 Antibiotics) - Meds/Allergy Pre-op Review Medications Reviewed: Yes Allergies Reviewed: Yes Beta Blockers on Current Med List: Yes Anesthesia Results - Labs 07/28/17 19:42 07/28/17 19:42 Name: Russel Lewis Date of Study: 03/23/2016 Procedures Performed: LEFT HEART CATH Indications: Abnormal Test - Stress Impressions: Nonobstructive atherosclerotic coronary artery disease. The left ventricle is normal and has normal contractility EF 65% Recommendations: Optimal medical therapy of patient's disease. Aggressive risk factor modification. Name: Russel Lewis Date of Study: 07/29/2017 [id number]^ProVation^FT^PDF EV/EV echocardiogram w enhance Impressions: Normal LV systolic function, LVEF 70%. Mild concentric left ventricular hypertrophy. Mild left ventricular diastolic dysfunction. Normal right ventricular size and function. No significant valvular dysfunction. Unable to estimate RVSP due to lack of TR jet. - Imaging EKG: report reviewed (SR) Anesthesia Exam O2 Sat Weight 121 kg O2 Sat by Pulse Oximetry 96 O2 Sat by Pulse Oximetry 95 O2 Sat by Pulse Oximetry 92 O2 Sat by Pulse Oximetry 93 O2 Sat by Pulse Oximetry 93 O2 Sat by Pulse Oximetry 96 O2 Sat by Pulse Oximetry 95 O2 Sat by Pulse Oximetry 90 Vital Signs Temp Pulse Resp BP Pulse Ox 98.8 F 73 20 194/87 97 07/28/17 18:52 07/28/17 18:52 07/28/17 18:52 07/28/17 18:52 07/28/17 18:52 Vital Signs/O2 Sat, Most Current Temp Pulse Resp BP Pulse Ox 98.0 F 58 18 167/80 96 07/31/17 19:11 07/31/17 19:11 07/31/17 20:34 07/31/17 19:11 07/31/17 20:34 Height: 5'8'' Weight: 266# - HEENT Pupil (Motor): Pupils equal, EOMI Mallampati: II Teeth: Missing Denture Type: Upper: Complete Oral Opening: Greater than 3 - COMMERCIAL LOAN ANALYST LOC: Oriented COMMERCIAL LOAN ANALYST Motor: Normal RUE, Normal LUE, Normal RLE, Normal LLE, Normal Face COMMERCIAL LOAN ANALYST Sensory: Normal: RUE, LUE, RLE, LLE, Face - Cardiac Rhythm: Regular Murmur: None JVD: No Carotid Bruit: No - Pulmonary Breath Sounds: bilateral Clear, bilateral Rales, bilateral Rhonchi Respiratory Effort: Symmetrical Anesthesia Assess/Plan ASA Score: 3 Modified Olmitz Scale for Level of Consciousness: Cooperative, oriented, and tranquil Anesthetic Plan: General Autologous Blood: Yes Monitoring Plan: Standard Monitors Recovery Plan: PACU
[2017-07-31] MEDS: *HR* Morphine 2 MG/ML SYRINGE IVP PRN (23:31)
[2017-08-01] MEDS: *HR* OxyCODONE/APAP 10/325 TABLET PO PRN ×3 (02:51→19:51)
[2017-08-01] MEDS: *HR* Morphine 2 MG/ML SYRINGE IVP PRN (04:10)
[2017-08-01] MEDS: *HR* Heparin 5,000 UNIT/ML VIAL SQ SCH ×2 (05:53→16:46)
[2017-08-01] MEDS: hydroCHLOROthiazide 25 MG TABLET PO SCH (09:17)
[2017-08-01] MEDS: amLODIPine 5 MG TABLET PO SCH (09:17)
[2017-08-01] MEDS: *HR* OxyCODONE ER (12 HR) 10 MG TABLET PO SCH ×2 (09:17→20:59)
[2017-08-01] MEDS: Isosorbide MONOnitrate (24 HR) 30 MG TAB.ER.24H PO SCH (09:18)
--- NOTE | 2017-08-01 09:33 | Internal Med Progress Note ---
Date of Encounter: 08/01/17 Time of Encounter: 09:28 - Assessment and plan (1) Thoracic compression fracture Current Visit: Yes Status: Acute Assessment and plan: Scheduled for Kyphoplasty T12, 1 and L2 Cont long-acting Oxycodone dosage. Continue IV Morphine and Toradol as needed for pain control reviewed 2 D Echo showed normal LVEF 70%, Mild LV diastolic dysfunction Intermediate risk for surgeries like khypoplasty Since pt's HR running in high 50's will hold Coreg Qualifiers: Encounter type: initial encounter Fracture type: closed Qualified Code(s) : S22.000A - Wedge compression fracture of unspecified thoracic vertebra, initial encounter for closed fracture (2) Lumbar compression fracture Current Visit: Yes Status: Acute Qualifiers: Encounter type: initial encounter Lumbar vertebra fracture level: L2 Fracture type: closed Qualified Code(s): S32.020A - Wedge compression fracture of second lumbar vertebra, initial encounter for closed fracture (3) Essential hypertension Current Visit: Yes Status: Chronic Assessment and plan: Blood pressure is better controlled today. Continue hydrochlorothiazide, amlodipine, and losartan. (4) DVT prophylaxis Current Visit: Yes Status: Acute Assessment and plan: subcutaneous heparin - Subjective Interval history: Mr. Lewis is a 67 year old male patient with a history of essential hypertension who presented to the ER after falling on his roof while he was trying to climb on a ladder. He fell about 10 feet and developed intense lower back pain. He denies any lower extremity weakness or numbness. No bowel or bladder incontinence. It was a mechanical fall and patient did not lose any consciousness. His CT of spine showed T12 and L2 vertebral body fractures. Pt was admitted in the hospital and started him on symptomatic and supportive care. His MRI of Spine showed T12, L1, L2 and L4 vertebral bodies acute compression fx with moderate T12 and mild L1 vertebral body height loss. His pain is fairly controlled with IV toradol and Naroctics. Denied any CP / SOB. - Constitutional Vitals: Temp Pulse Resp BP Pulse Ox 98.4 F 55 15 123/72 92 08/01/17 06:43 08/01/17 09:22 08/01/17 06:43 08/01/17 06:43 08/01/17 06:43 General appearance: Present: cooperative, mild distress (due to low back pain), A&O X 3, answers questions appropriately - Head Head exam: Present: atraumatic, normal inspection - Neck Neck exam general surgery: Present: supple - Respiratory Respiratory exam: Present: decreased breath sounds. Absent: rales, respiratory distress, rhonchi, wheezes - Cardiovascular Cardiovascular exam: Present: RRR, +S1, +S2. Absent: systolic murmur - GI/Abdominal GI/Abdominal exam: Present: distended, soft. Absent: rebound, rigid, tenderness , no peritoneal signs - Back Exam Back exam: Present: vertebral tenderness. Absent: CVA tenderness (L), CVA tenderness (R) - Neurological Exam Neurological exam: Present: alert, oriented X3 - Psychiatric Psychiatric exam: Present: normal affect, normal mood Internal Medicine: Result - Labs CBC & Chem 7: 07/28/17 19:42 07/28/17 19:42 - ABG Interpretation ABG results: PT/INR, D-dimer PT 11.5 Seconds (9.4-12.1) 07/28/17 19:42 - VTE Documentation of Mechanical Device: Intermittent pneumatic compression device Consult Discharge Plan - Plan Referrals: Tab Starks Jr, MD [Primary Care Provider] -
[2017-08-01] MEDS: Ketorolac 30 MG/ML VIAL IVP PRN ×3 (10:05→23:06)
[2017-08-01 10:14] LABS: Basophils # 0.1 K/mcL (0.0-0.2); Basophils % 0.8 %; Eosinophils # 0.3 K/mcL (0.0-0.6); Eosinophils % 5.2 %; Hemoglobin 13.4 g/dL (12.9-16.9); Immature Granulocytes % 0.5 % (0-4); Lymphocytes # 1.5 K/mcL (0.6-4.6); Lymphocytes % 23.7 %; Mean Corpuscular HGB Conc 34.4 g/dL (31.6-35.5); Mean Corpuscular Hemoglobin 31.9 pg (28.0-33.3); Mean Corpuscular Volume 92.9 fL (83.0-100.0); Mean Platelet Volume 10.3 fL (9.4-12.4); Monocytes # 0.7 K/mcL (0.0-1.3); Monocytes % 11.6 %; Neutrophils # 3.6 K/mcL (1.6-8.9); Platelet Count 180 K/mcL (140-400); Red Cell Distribution Width 12.2 % (11.5-14.5); Segmented Neutrophils % 58.2 %
[2017-08-01 10:28] LABS: BUN/Creatinine Ratio 22 (6-26); Blood Urea Nitrogen 17 mg/dL (8-26); Calcium 9.2 mg/dL (8.6-10.8); Carbon Dioxide 27 mEq/L (19-29); Chloride 105 mEq/L (98-109); Glucose 101 mg/dL (70-99); Magnesium 1.9 mg/dL (1.6-2.6); Osmolality,Calculated 294 (280-300); Potassium 3.7 mEq/L (3.5-4.5); Sodium 141 mEq/L (136-145); eGFR For African Americans > 60 (> 60); eGFR For Non-African Americans > 60 (> 60)
[2017-08-01] MEDS: Budesonide/Formoterol 80/4.5 MDI IH SCH ×2 (11:10→21:43)
[2017-08-02] MEDS: *HR* Morphine 2 MG/ML SYRINGE IVP PRN (03:10)
[2017-08-02 05:17] LABS: Basophils % 0.6 %; Eosinophils # 0.3 K/mcL (0.0-0.6); Eosinophils % 5.2 %; Hematocrit 36.6 % (37.5-50.1); Hemoglobin 12.6 g/dL (12.9-16.9); Immature Granulocytes % 0.5 % (0-4); Lymphocytes # 1.5 K/mcL (0.6-4.6); Lymphocytes % 22.7 %; Mean Corpuscular HGB Conc 34.4 g/dL (31.6-35.5); Mean Corpuscular Hemoglobin 31.6 pg (28.0-33.3); Mean Corpuscular Volume 91.7 fL (83.0-100.0); Mean Platelet Volume 10.5 fL (9.4-12.4); Monocytes # 0.9 K/mcL (0.0-1.3); Monocytes % 13.3 %; Neutrophils # 3.7 K/mcL (1.6-8.9); Platelet Count 184 K/mcL (140-400); Red Blood Count 3.99 M/mcL (4.19-5.50); Red Cell Distribution Width 11.9 % (11.5-14.5); Segmented Neutrophils % 57.7 %
[2017-08-02] MEDS: *HR* Heparin 5,000 UNIT/ML VIAL SQ SCH ×2 (05:26→17:11)
[2017-08-02] MEDS: Ketorolac 30 MG/ML VIAL IVP PRN ×2 (05:26→11:23)
[2017-08-02] MEDS: amLODIPine 5 MG TABLET PO SCH (09:07)
[2017-08-02] MEDS: Isosorbide MONOnitrate (24 HR) 30 MG TAB.ER.24H PO SCH (09:07)
[2017-08-02] MEDS: hydroCHLOROthiazide 25 MG TABLET PO SCH (09:07)
[2017-08-02] MEDS: *HR* OxyCODONE ER (12 HR) 10 MG TABLET PO SCH (09:07)
[2017-08-02] MEDS: *HR* OxyCODONE/APAP 10/325 TABLET PO PRN (12:56)
--- NOTE | 2017-08-02 15:02 | Internal Med Progress Note ---
Date of Encounter: 08/02/17 Time of Encounter: 10:00 - Assessment and plan (1) Thoracic compression fracture Current Visit: Yes Status: Acute Assessment and plan: Scheduled for Kyphoplasty T12, 1 and L2 Cont long-acting Oxycodone dosage. Continue IV Morphine and Toradol as needed for pain control reviewed 2 D Echo showed normal LVEF 70%, Mild LV diastolic dysfunction Intermediate risk for surgeries like khypoplasty Since pt's HR running in high 50's will continue holding Coreg Qualifiers: Encounter type: initial encounter Fracture type: closed Qualified Code(s) : S22.000A - Wedge compression fracture of unspecified thoracic vertebra, initial encounter for closed fracture (2) Lumbar compression fracture Current Visit: Yes Status: Acute Qualifiers: Encounter type: initial encounter Lumbar vertebra fracture level: L2 Fracture type: closed Qualified Code(s): S32.020A - Wedge compression fracture of second lumbar vertebra, initial encounter for closed fracture (3) Essential hypertension Current Visit: Yes Status: Chronic Assessment and plan: Blood pressure is better controlled today. Continue hydrochlorothiazide, amlodipine, and losartan. (4) DVT prophylaxis Current Visit: Yes Status: Acute Assessment and plan: subcutaneous heparin - Subjective Interval history: Mr. Lewis is a 67 year old male patient with a history of essential hypertension who presented to the ER after falling on his roof while he was trying to climb on a ladder. He fell about 10 feet and developed intense lower back pain. He denies any lower extremity weakness or numbness. No bowel or bladder incontinence. It was a mechanical fall and patient did not lose any consciousness. His CT of spine showed T12 and L2 vertebral body fractures. Pt was admitted in the hospital and started him on symptomatic and supportive care. His MRI of Spine showed T12, L1, L2 and L4 vertebral bodies acute compression fx with moderate T12 and mild L1 vertebral body height loss. His pain is fairly controlled with IV Toradol and Narcotics. Denied any CP / SOB. No events over night. He did not got for surgery y/d. Scheduled for kyphoplasty today - Constitutional Vitals: Temp Pulse Resp BP Pulse Ox 98.2 F 104 20 175/85 95 08/02/17 11:29 08/02/17 11:29 08/02/17 11:29 08/02/17 11:29 08/02/17 11:29 General appearance: Present: cooperative, mild distress (due to low back pain), A&O X 3, answers questions appropriately - Head Head exam: Present: atraumatic, normal inspection - Respiratory Respiratory exam: Present: decreased breath sounds. Absent: rales, respiratory distress, rhonchi, wheezes - Cardiovascular Cardiovascular exam: Present: bradycardia, +S1, +S2. Absent: diastolic murmur, gallop, rubs, systolic murmur - GI/Abdominal GI/Abdominal exam: Present: distended, normal bowel sounds, soft. Absent: rebound, rigid, tenderness - Extremities Exam Extremities exam: Absent: calf tenderness, pedal edema, tenderness - Back Exam Back exam: Present: vertebral tenderness. Absent: CVA tenderness (L), CVA tenderness (R) - Neurological Exam Neurological exam: Present: alert, oriented X3 - Psychiatric Psychiatric exam: Present: normal affect, normal mood Internal Medicine: Result - Labs CBC & Chem 7: 08/02/17 04:37 08/01/17 09:53 Labs: Short CBC 08/02/17 Range/Units 04:37 WBC 6.4 (4.3-11.1) K/mcL Hgb 12.6 L (12.9-16.9) g/dL Hct 36.6 L (37.5-50.1) % Plt Count 184 (140-400) K/mcL Neutrophils # 3.7 (1.6-8.9) K/mcL - ABG Interpretation ABG results: PT/INR, D-dimer PT 11.5 Seconds (9.4-12.1) 07/28/17 19:42 - VTE Documentation of Mechanical Device: Intermittent pneumatic compression device Consult Discharge Plan - Plan Referrals: Tab Starks Jr, MD [Primary Care Provider] -
--- NOTE | 2017-08-02 15:53 | Anesthesia Evaluation PreOp ---
Date of Encounter: 08/02/17 Time of Encounter: 15:45 - Past History Planned Operation: Kyphoplasty Alcohol Use: occasionally Drug use: none Medications and Allergies Budesonide/Formoterol 80/4.5 [Symbicort 80/4.5] 2 puff IH BID 03/11/16 [History ] Cyclobenzaprine [Flexeril] 10 mg PO TID PRN 03/11/16 [History] Diclofenac Sodium [Voltaren] 1 appl TP TID PRN 03/11/16 [History] OxyCODONE/APAP 5/325 [Percocet 5/325 MG] 1 - 2 tab PO Q6HR PRN 03/11/16 [History ] Aspirin 81 mg PO DAILY #30 tab.chew 03/13/16 [Rx] Carvedilol [Coreg] 12.5 mg PO BID #60 tablet 03/13/16 [Rx] Isosorbide MONOnitrate (24 HR) [Imdur] 30 mg PO DAILY #30 tab.er.24h 03/13/16 [ Rx] Nitroglycerin 0.4 mg SL Q5MIN PRN #30 tab.subl 03/13/16 [Rx] amLODIPine [Norvasc] 10 mg PO DAILY #30 tablet 03/13/16 [Rx] Albuterol Sulfate [Proair Hfa] 1 puff IH DAILY 03/23/16 [History] Ibuprofen [Motrin] 800 mg PO TID PRN 03/23/16 [History] Losartan Potassium [Cozaar] 100 mg PO DAILY 03/23/16 [History] 3 Allergy/AdvReac Type Severity Reaction Status Date / Time codeine Allergy Irritable Verified 07/28/17 18:51 Sulfa (Sulfonamide Allergy Hives Verified 07/28/17 18:51 Antibiotics) Anesthesia Results - Labs 08/02/17 04:37 08/01/17 09:53
[2017-08-02] MEDS ORDERED: Neostigmine Methylsulfate 3 MG/3 ML SYRINGE ONE (16:08)
[2017-08-02] MEDS ORDERED: *HR* Rocuronium Bromide 50 MG/5 ML VIAL ONE (16:08)
[2017-08-02] MEDS ORDERED: Lidocaine -MPF 4% 5 ML AMPUL ONE (16:08)
[2017-08-02] MEDS ORDERED: Dexamethasone 4 MG/ML VIAL ONE (16:08)
[2017-08-02] MEDS ORDERED: Ondansetron 4 MG/2 ML VIAL ONE (16:08)
[2017-08-02] MEDS ORDERED: *HR* Midazolam HCl 2 MG/2 ML VIAL ONE (16:08)
[2017-08-02] MEDS ORDERED: *HR* Propofol 200 MG/20 ML VIAL IVP ONE (16:08)
[2017-08-02] MEDS ORDERED: *HR* FentaNYL (PF) 100 MCG/2 ML VIAL ONE (16:08)
[2017-08-02] MEDS ORDERED: *HR* Succinylcholine 200 MG/10 ML VIAL IVP ONE (16:08)
[2017-08-02] MEDS: Budesonide/Formoterol 80/4.5 MDI IH SCH (16:20)
[2017-08-02] MEDS ORDERED: *HR* HYDROmorphone (PF) 1 MG/ML SYRINGE IVP PRN (17:32)
[2017-08-02] MEDS ORDERED: Ondansetron 4 MG/2 ML VIAL IVP ONE (17:32)
[2017-08-02] MEDS ORDERED: *HR* Labetalol 20 MG/4 ML SYRINGE IVP PRN (17:32)
[2017-08-02] MEDS ORDERED: EPHEDrine 50 MG/ML VIAL ONE (17:45)
--- NOTE | 2017-08-02 18:51 | Orthopedic Operative Note ---
Date of procedure: 08/02/17 Pre-op diagnosis: Vertebral compression fractures Post-op diagnosis: same Operation/Findings: Kyphoplasty T12, L1, and L2: The patient was brought to the operative theater where successful endotracheal anesthesia was performed. The patient was given antibiotics prior to the start of the procedure. Compression boots and stockings were used for deep vein thrombosis. Patient was then turned prone on a well-padded Guillermo table. The back was prepped and draped in the usual sterile fashion. 2 C-arm fluorographic devices were brought into position such that simultaneous AP and lateral views centered over the involved L2 vertebral body could be performed. A stab incision was made over the superior-lateral aspect of the left L2 pedicle. We introduced a Jamshidi needle into the L2 vertebral body via a transpedicular route. We took biplanar images of the vertebral body using fluorography. The needle was found to be in appropriate position and within the confines of the L2 vertebral body. We then introduced a biopsy trocar and obtained a biopsy specimen of the L2 vertebral body. This was sent for pathologic evaluation. We then removed the biopsy trocar and introduced a Kyphon balloon. The balloon was insufflated to approximately 4 mL volume and subsequently deflated. The balloon was seen to expand within the confines of the L2 vertebral body on biplanar fluorographic views. The balloon was then removed. We then introduced a Jamshidi needle into the L1 vertebral body and confirmed satisactory placement by biplanar fourography. We then placed and inflated a Kyphon balloon and expanded the baloon to a 4 ml volume and subsequently deflated the ballon. We then inserted cement trochars in L1 and L2 and sequentially placed bone cement within the confines of the L1 and L2 vertebral body. We took intermittent fluorographic views which confirmed satisfactory placement of the cement. After completion of the cementation process, the trocar was removed. We moved proximally to the T12 level and repeated the steps, including needle placement, ballon placement and subsequent expansion and deflation, and finally placement of bone cement. We took final AP and lateral fluorographic views which conformed satisfactory placement of the cement at each level (T12, L1, and L2). . We then closed the stab incisions with 2-0 nylon suture. A Band-Aid was placed over each wound. The patient was turned supine on a hospital bed and extubated. All sponge instrument and needle counts were correct at the end of the procedure. The patient tolerated the procedure well without complications. Anesthesia: GETA Surgeon: Cuong Wang Jr Estimated blood loss (cc): 7 Specimen: L2 vertebral biopsy Condition: stable Disposition: PACU
--- NOTE | 2017-08-02 20:16 | Anesthesia Evaluation Post Op ---
Date of Encounter: 08/02/17 Time of Encounter: 20:16 - Vital Signs Vital Signs: Vital Signs/O2 Sat, Most Current Temp Pulse Resp BP Pulse Ox 97.0 F L 71 16 152/70 96 08/02/17 19:49 08/02/17 19:49 08/02/17 19:49 08/02/17 19:49 08/02/17 19:49 - Lungs Lungs: Clear Ascult./Percussion - Airway Airway: Non-obstructed - Cardiovascular Regular Rate - Mental Status Mental Status: Alert & Oriented, Answers Appropriately - Pain Pain Scale: 0 Pain Scale used: Numeric (1 - 10) - Nausea Vomiting Nausea Vomiting: Not Present - Hydration Hydration: NPO, Has not voided - Discharge PostOp Status: Transfer Patient to floor
[2017-08-02] MEDS ORDERED: Ibuprofen 800 MG TABLET PO PRN (20:39)
[2017-08-02] MEDS ORDERED: Ondansetron 4 MG/2 ML VIAL IVP PRN (20:39)
[2017-08-02] MEDS ORDERED: Ringers Solution, Lactated 1,000 ML IVC SCH (20:39)
[2017-08-02] MEDS ORDERED: *HR* Morphine 2 MG/ML SYRINGE IVP PRN (20:39)
[2017-08-02] MEDS: *HR* OxyCODONE Immed Rel 5 MG TABLET PO PRN (22:12)
[2017-08-02] MEDS: ceFAZolin 2,000 MG in D5% in Water 100 ML IVPB SCH (23:47)
[2017-08-02] MEDS ORDERED: Ketorolac 15 MG/ML VIAL IM ONE (23:50)
[2017-08-03] MEDS: *HR* OxyCODONE Immed Rel 5 MG TABLET PO PRN (06:58)
[2017-08-03] MEDS: ceFAZolin 2,000 MG in D5% in Water 100 ML IVPB SCH (08:41)
[2017-08-03] MEDS ORDERED: Aspirin 81 MG TAB.CHEW PO SCH (09:00)
[2017-08-03] MEDS ORDERED: amLODIPine 5 MG TABLET PO SCH (09:00)
[2017-08-03] MEDS ORDERED: Isosorbide MONOnitrate (24 HR) 30 MG TAB.ER.24H PO SCH (09:00)
[2017-08-03 10:36] VITALS: BP 147/70
--- NOTE | 2017-08-03 12:31 | Discharge Summary ---
Date of Encounter: 08/03/17 Time of Encounter: 08:50 - Discharge Diagnosis (1) Vertebral compression fracture Priority: Primary Status: Acute Comments: Secondary to fall s/p Kyphoplasty T12, 1 and L2 Stable from a medical and surgical standpoint Patient has no gait abnormalities, no bladder or bowel dysfunction Stable to be discharged home, follow up with PCP and Spine surgeon Qualifiers: Encounter type: initial encounter Qualified Code(s): M48.50XA - Collapsed vertebra, not elsewhere classified, site unspecified, initial encounter for fracture (2) DVT prophylaxis Priority: Primary Status: Acute Comments: Patient is on subcut heparin throughout admission Patient has no needs er PTOT Stable to be discharged home (3) Morbid obesity Priority: Secondary Status: Chronic Comments: Lifestyle changes (4) Essential hypertension Priority: Secondary Status: Chronic Comments: Controlled. Continue same medications at home. (5) Hyperlipidemia Priority: Secondary Status: Chronic Qualifiers: Hyperlipidemia type: unspecified Qualified Code(s): E78.5 - Hyperlipidemia , unspecified - Discharge Medications Prescriptions: OxyCODONE/APAP 5/325 [Percocet 5/325 MG] 1 tab PO Q6HR PRN #15 tablet PRN Reason: Pain Home Medications: Budesonide/Formoterol 80/4.5 [Symbicort 80/4.5] 2 puff IH BID 03/11/16 [History ] Cyclobenzaprine [Flexeril] 10 mg PO TID PRN 03/11/16 [History] Diclofenac Sodium [Voltaren] 1 appl TP TID PRN 03/11/16 [History] Aspirin 81 mg PO DAILY #30 tab.chew 03/13/16 [Rx] Carvedilol [Coreg] 12.5 mg PO BID #60 tablet 03/13/16 [Rx] Isosorbide MONOnitrate (24 HR) [Imdur] 30 mg PO DAILY #30 tab.er.24h 03/13/16 [ Rx] Nitroglycerin 0.4 mg SL Q5MIN PRN #30 tab.subl 03/13/16 [Rx] amLODIPine [Norvasc] 10 mg PO DAILY #30 tablet 03/13/16 [Rx] Albuterol Sulfate [Proair Hfa] 1 puff IH DAILY 03/23/16 [History] Losartan Potassium [Cozaar] 100 mg PO DAILY 03/23/16 [History] OxyCODONE/APAP 5/325 [Percocet 5/325 MG] 1 tab PO Q6HR PRN #15 tablet 08/03/17 [ Rx] Allergies/Adverse Reactions: 3 Allergy/AdvReac Type Severity Reaction Status Date / Time codeine Allergy Irritable Verified 07/28/17 18:51 Sulfa (Sulfonamide Allergy Hives Verified 07/28/17 18:51 Antibiotics) Date of admission: 07/30/17 15:39 Primary care physician: Tab Starks Jr, MD Consults: 08/02/17 20:39 Consult to Occupational Therapy [CONS] Routine Comment: Evaluate, develop and implement POC Reason for Consult: No bending, lifting or twisting, log roll when getting out of bed Consult to Physical Therapy [CONS] Routine Comment: Evaluate, develop and implement POC Reason for Consult: Postoperative rehabilitation Discharging clinician: Ayan Newman Anticipated date of discharge: 08/03/17 - Patient Status Disposition: Home, Self-Care Condition: Fair Functional capacity at discharge: independent ambulation Overall status at discharge: patient is back to baseline - Discharge Instructions Follow Up With: Maggie Phillips PAC [Physician Plant Security Guard] - 08/15/17 3:00 pm Zachery Tariq DO [Partnered Physician] - 08/09/17 11:05 am Tab Starks Jr, MD [Primary Care Provider] - 08/18/17 9:30 am Will Ortiz MD [Non-Partnered Physician] - 08/25/17 9:00 am - Diet and Activity Activity: resume usual activities as tolerated Diet: low fat, low cholesterol, low salt diet Interval History: Nr. Debbie is a 67 year old male patient with a history of essential hypertension who presented to the ER after falling on his roof while he was trying to climb on a ladder. He fell about 10 feet and developed intense lower back pain. He denies any lower extremity weakness or numbness. No bowel or bladder incontinence. It was a mechanical fall and patient did not lose any consciousness. His CT of spine showed T12 and L2 vertebral body fractures. Hospital course: Pt was admitted in the hospital and started him on symptomatic and supportive care. His MRI of Spine showed T12, L1, L2 and L4 vertebral bodies acute compression fx with moderate T12 and mild L1 vertebral body height loss. Echo showed normal LVEF 70%, Mild LV diastolic dysfunction He was started on pain control and evaluated by spine surgery He is sPOD 1 s/p kyphoplasty He is seen and evaluated at bedside this morning denies new complains Reports pain has improved, no CPP/SOB, no gait/bladder/Bowel problems He is safe to be discharged home, to follow up with PCP and Spine surgeon as outpatient Patient was seen and evaluated by PTOT with no physical therapy needs Plan of care discussed, verbalized understanding Flu shot recommended - Time Spent with Patient Total time spent providing and/or coordinating discharge services: Greater than 30 minutes - Constitutional Vitals: Temp Pulse Resp BP Pulse Ox 98.6 F 60 16 147/70 98 08/03/17 10:35 08/03/17 10:35 08/03/17 10:35 08/03/17 10:35 08/03/17 10:35 General appearance: Present: cooperative, A&O X 3, morbidly obese, pleasant, no acute distress, answers questions appropriately - Head Head exam: Present: atraumatic, normocephalic - Eye Eye exam: Present: PERRL, conjuntiva pink, sclera anicteric Pupils: Present: PERRL - Neck Neck exam general surgery: Present: supple, trachea midline. Absent: lymphadenopathy - Respiratory Respiratory exam: Present: CTAB. Absent: accessory muscle use, rales, rhonchi, wheezes - Cardiovascular Cardiovascular exam: Present: RRR, +S1, +S2. Absent: diastolic murmur, gallop, rubs, systolic murmur - GI/Abdominal GI/Abdominal exam: Present: normal bowel sounds, soft, no peritoneal signs. Absent: distended, tenderness - Extremities Exam Extremities exam: Present: warm, radial pulses palpable and symmetrical. Absent : calf tenderness, cyanotic, pedal edema - Back Exam Additional comments: Dressing clean and dry - Neurological Exam Neurological exam: Present: alert, CN II-XII intact, oriented X3, no focal deficits. Absent: pronater drift, facial droop, speech deficit - Skin Skin exam: Present: dry, intact - VTE Documentation of Mechanical Device: Graduated compression elastic hosiery
[2017-08-03] MEDS ORDERED: FLUARIX QUAD 2017-18 36MOS UP/PF 0.5 ML SYRINGE IM ONE (12:46)
== END 2017-08-03 14:30 | disposition home or self-care (01) | DRG 478 ==
LOC: EMEROO 18:20 → 3NENU 18:20 → SUATTDRO 23:12 → 3NENU 23:14 → SUATTDRO 07-30 15:39
PROVIDERS: ADMIT Internal Medicine; ATTEND Internal Medicine

== ENCOUNTER 2018-02-10 07:42 | Inpatient (IN) ==
--- NOTE | 2018-02-10 07:48 | Emergency Department Note ---
Disposition Clinical Impression: Chest pain Qualifiers: Chest pain type: unspecified Qualified Code(s): R07.9 - Chest pain, unspecified Dyspnea Qualifiers: Dyspnea type: shortness of breath Qualified Code(s): R06.02 - Shortness of breath; R06.00 - Dyspnea, unspecified; R06.01 - Orthopnea Chronic low back pain Qualifiers: Back pain laterality: unspecified Sciatica presence: unspecified whether sciatica present Qualified Code(s): M54.5 - Low back pain; G89.29 - Other chronic pain; G89.29 - Other chronic pain CAP (community acquired pneumonia) Qualifiers: Laterality: right Lung location: lower lobe of lung Qualified Code(s): J18.1 - Lobar pneumonia, unspecified organism Disposition: Admitted As Inpatient Condition: Fair Forms: ED Satisfaction Letter Time of Disposition: 08:39 Chest Pain HPI - General Chief Complaint: ED Chest Pain Stated Complaint: chest pain Time Seen by Provider: 02/10/18 07:44 Vital Signs Reviewed: Yes Nursing Notes Reviewed: Yes - History of Present Illness HPI Narrative: Mr. Lewis presents from home for evaluation of chest pain for the past 4-5 days. Describes a heaviness. Located mid sternal with radiation interscapulat. Constant. Occurs at rest. Not worsened with exertion. Associated with nausea and dyspnea. Chest pain improved slightly with nitroglycerine sprays x2. Dyspnea worsened with laying supine and not improved with his home albuterol as well as record. He has a dry cough substantially worse while lying supine. Patient notes he has chronic lower back pain and this may be obscuring his chest pain. PMH: Chronic back pains secondary to thoracic and lumbar compression fracture, hypertension on Norvasc, Cozaar, Imdur. Patient denies any history of heart attack however he does CAD on home of nitroglycerin. antiplatelet: Aspirin 81 by mouth daily. ROS: Positive: As above, chills Negative: Fever, palpitations, unusual back pain, numbness, weakness, tingling, headache, changes in vision - Related Data Home Medications Medication Instructions Recorded Confirmed Budesonide/Formoterol 80/4.5 2 puff IH BID 03/11/16 07/28/17 [Symbicort 80/4.5] Cyclobenzaprine [Flexeril] 10 mg PO TID PRN 03/11/16 07/28/17 Diclofenac Sodium [Voltaren] 1 appl TP TID PRN 03/11/16 07/28/17 Albuterol Sulfate [Proair Hfa] 1 puff IH DAILY 03/23/16 07/28/17 Losartan Potassium [Cozaar] 100 mg PO DAILY 03/23/16 07/28/17 Previous Rx's Medication Instructions Recorded Aspirin 81 mg PO DAILY #30 tab.chew 03/13/16 Carvedilol [Coreg] 12.5 mg PO BID #60 tablet 03/13/16 Isosorbide MONOnitrate (24 HR) 30 mg PO DAILY #30 tab.er.24h 03/13/16 [Imdur] Nitroglycerin 0.4 mg SL Q5MIN PRN #30 tab.subl 03/13/16 amLODIPine [Norvasc] 10 mg PO DAILY #30 tablet 03/13/16 OxyCODONE/APAP 5/325 [Percocet 1 tab PO Q6HR PRN #15 tablet 08/03/17 5/325 MG] Allergies Allergy/AdvReac Type Severity Reaction Status Date / Time codeine Allergy Irritable Verified 02/10/18 07:43 Sulfa (Sulfonamide Allergy Hives Verified 02/10/18 07:43 Antibiotics) All systems ED: reviewed and negative except as stated. Review of Systems: As Per HPI Chest Pain PMH - Past Medical History Medical history: Reports: COPD, coronary artery disease, hepatitis, hypertension Surgical history: Reports: appendectomy, cholecystectomy, orthopedic, other Psychiatric history: Reports: no psych history - Social History Smoking Status: Never smoker Alcohol use: Reports: rarely Drug use: Reports: none Physical Exam Vital Signs Reviewed General: Patient is alert, oriented, and in mild distress-he is small beads of sweat on his forehead, 4-6 word conversational dyspnea Head: atraumatic, normocephalic Eye: normal appearance, no scleral icterus, no conjunctival injection ENT: mucous membranes moist, normal external ear exam Neck: normal inspection, trachea midline, full ROM Chest: normal inspection, symmetric chest rise Respiratory: Good respiratory effort. Bilateral breath sounds are equal with scant posterior right lower lobe crackles, no wheeze. Cardiovascular: Regular rate and rhythm. No clicks, rubs, gallops, or murmors. Normal heart sounds. Bilateral radial pulses 2/4 and equal. Grade 2 pitting edema equal bilaterally in lower extremities to the level of the mid tibia. Abdomen: Obese. Bowel sounds present normoactive x-4 quadrants. Abdomen is soft, nondistended, and nontender. No guarding or rebound. Musculoskeletal: Spontaneously moving all extremities. Skin: warm, dry, intact. Neuro: Alert and oriented x4. Sensation light touch intact. Psych: Patient's affect is appropriate for situation. Course Course Narrative: Patient's chart was reviewed: Echocardiogram 07/2017: LVEF 70%. Mild concentric LVH. Mild LV diastolic dysfunction. No significant valvular dysfunction. Left heart catheter March 2016: 30% stenosis of mid LAD. 30% stenosis proximal RCA. 40-50% stenosis mid RCA. 30% stenosis first RPL. EKG dated 10 Feb 2018 at 07:48 interpreted as sinus rhythm with a rate of 66. Normal intervals. Normal axis. Nonspecific ST-T changes. Some baseline artifacts. Compared to previous dated 07/29/2017 showing no acute ischemic changes in comparison. Clinical concern for ACS versus CHF versus pneumonia versus bronchitis. Chest x-ray on my review as well as by radiology impression shows right lower lobe infiltrate clinically consistent with pneumonia. Patient does not meet SIRS criteria. Given patient's comorbidities and dyspnea, he is agreeable to admission for IV antibiotics and continued management. Begin empiric IV Levaquin. Attempted to minimize IV fluids given his pedal edema. Provide Toradol for patient's chronic lower back pain. Patient notes this works better than opioid analgesia. I discussed the patient with the admitting hospitalist, Dr. Mcmillan, who agrees to accept the patient for continued evaluation and management. Chest X-Ray 02/10/18 07:55 IMPRESSION: Right lung infiltrate/pneumonia. D/ / Basim Latif MD / Basim Latif MD Interpreting Provider: Basim Latif MD Vital Signs Temperature 100.2 F H 02/10/18 07:44 Pulse Rate 68 02/10/18 07:44 Respiratory Rate 26 02/10/18 07:44 Blood Pressure 139/67 02/10/18 07:44 O2 Sat by Pulse Oximetry 94 02/10/18 07:44 Temperature 99.4 F 02/10/18 08:04 Pulse Rate 62 02/10/18 08:10 Respiratory Rate 21 02/10/18 08:04 Blood Pressure 151/49 02/10/18 08:10 O2 Sat by Pulse Oximetry 95 02/10/18 08:04 Oxygen Delivery Oxygen Delivery Room Air Chest Pain - Lab Data Result diagrams: 02/10/18 08:20 Lab Results 02/10/18 Range/Units 08:20 WBC 11.3 H (4.3-11.1) K/mcL RBC 4.43 (4.19-5.50) M/mcL Hgb 13.6 (12.9-16.9) g/dL Hct 40.2 (37.5-50.1) % MCV 90.7 (83.0-100.0) fL MCH 30.7 (28.0-33.3) pg MCHC 33.8 (31.6-35.5) g/dL RDW 12.2 (11.5-14.5) % Plt Count 170 (140-400) K/mcL MPV 10.4 (9.4-12.4) fL Immature Gran % 0.4 (0-4) % Seg Neutrophils % 87.4 % Lymphocytes % 5.0 % Monocytes % 6.3 % Eosinophils % 0.6 % Basophils % 0.3 % Neutrophils # 9.9 H (1.6-8.9) K/mcL Lymphocytes # 0.6 (0.6-4.6) K/mcL Monocytes # 0.7 (0.0-1.3) K/mcL Eosinophils # 0.1 (0.0-0.6) K/mcL Basophils # 0.0 (0.0-0.2) K/mcL Heart Score - Score History: Slightly Suspicious EKG: Non Specific repolarisation Disturbance Age: 45-65 Risk Factors: Equal/Greater than 3 risk factor or history of atherosclerotic disease Troponin: Less than normal limit HEART Score Total: 4
--- NOTE | 2018-02-10 07:50 | Emergency Department Note ---
Disposition Clinical Impression: Chest pain, Dyspnea, Chronic low back pain, CAP (community acquired pneumonia) Disposition: Admitted As Inpatient Condition: Fair General Adult HPI - General Chief complaint: ED Chest Pain Stated complaint: chest pain Time Seen by Provider: 02/10/18 07:44 - History of Present Illness Pain Scale: 4 - Related Data Home Medications Medication Instructions Recorded Confirmed Albuterol Sulfate [Proair Hfa] 1 - 2 puff IH Q6H PRN 03/23/16 02/10/18 Losartan Potassium [Cozaar] 100 mg PO DAILY 03/23/16 02/10/18 Baclofen [Lioresal] 10 mg PO TID 02/10/18 02/10/18 Budesonide/Formoterol 160/4.5 2 puff IH BIDR 02/10/18 02/10/18 [Symbicort 160/4.5] Ibuprofen [Ibuprofen] 800 mg PO TID 02/10/18 02/10/18 amLODIPine [Norvasc] 5 mg PO DAILY 02/10/18 02/10/18 Previous Rx's Medication Instructions Recorded Carvedilol [Coreg] 12.5 mg PO BID #60 tablet 03/13/16 Isosorbide MONOnitrate (24 HR) 30 mg PO DAILY #30 tab.er.24h 03/13/16 [Imdur] Nitroglycerin 0.4 mg SL Q5MIN PRN #30 tab.subl 03/13/16 OxyCODONE/APAP 5/325 [Percocet 1 tab PO Q6HR PRN #15 tablet 08/03/17 5/325 MG] Allergies Allergy/AdvReac Type Severity Reaction Status Date / Time Sulfa (Sulfonamide Allergy Hives Verified 02/10/18 07:43 Antibiotics) codeine AdvReac Irritable Verified 02/10/18 09:34 Past Medical History - Past Medical History Medical history: Reports: COPD, coronary artery disease, hepatitis, hypertension Surgical history: Reports: appendectomy, cholecystectomy, orthopedic, other Psychiatric history: Reports: no psych history - Social History Smoking Status: Never smoker Smokeless Tobacco Status: No Alcohol use: Reports: rarely Drug use: Reports: none Course Vital Signs Temperature 100.2 F H 02/10/18 07:44 Pulse Rate 68 02/10/18 07:44 Respiratory Rate 26 02/10/18 07:44 Blood Pressure 139/67 02/10/18 07:44 O2 Sat by Pulse Oximetry 94 02/10/18 07:44 Temperature 98.2 F 02/10/18 11:26 Pulse Rate 55 02/10/18 11:26 Respiratory Rate 16 02/10/18 11:26 Blood Pressure 138/80 02/10/18 11:26 O2 Sat by Pulse Oximetry 92 02/10/18 11:26 Oxygen Delivery Oxygen Delivery Room Air Medical Decision Making - Lab Data Result diagrams: 02/10/18 08:20 02/10/18 08:20 Lab Results 02/10/18 02/10/18 02/10/18 Range/Units 08:20 08:20 08:20 WBC 11.3 H (4.3-11.1) K/mcL RBC 4.43 (4.19-5.50) M/mcL Hgb 13.6 (12.9-16.9) g/dL Hct 40.2 (37.5-50.1) % MCV 90.7 (83.0-100.0) fL MCH 30.7 (28.0-33.3) pg MCHC 33.8 (31.6-35.5) g/dL RDW 12.2 (11.5-14.5) % Plt Count 170 (140-400) K/mcL MPV 10.4 (9.4-12.4) fL Immature Gran % 0.4 (0-4) % Seg Neutrophils % 87.4 % Lymphocytes % 5.0 % Monocytes % 6.3 % Eosinophils % 0.6 % Basophils % 0.3 % Neutrophils # 9.9 H (1.6-8.9) K/mcL Lymphocytes # 0.6 (0.6-4.6) K/mcL Monocytes # 0.7 (0.0-1.3) K/mcL Eosinophils # 0.1 (0.0-0.6) K/mcL Basophils # 0.0 (0.0-0.2) K/mcL Sodium 140 (136-145) mEq/L Potassium 3.9 (3.5-5.1) mEq/L Chloride 111 H (98-107) mEq/L Carbon Dioxide 22 L (23-29) mEq/L BUN 16 (8-23) mg/dL Creatinine 0.74 (0.70-1.30) mg/dL Est GFR ( Amer) > 60 (> 60) Est GFR (Non-Af Amer) > 60 (> 60) BUN/Creatinine Ratio 22 (6-26) Glucose 196 H (70-105) mg/dL Calculated Osmolality 297 (280-300) Calcium 9.0 (8.6-10.3) mg/dL Troponin I < 0.03 (< 0.04) ng/mL B-Natriuretic Peptide 141 H (Less than 100) pg/mL Attestation Statement - Attestation Attestation: I examined this patient and my medical decision-making was reviewed with the Resident Physician. I agree with the documented findings, disposition and treatment plan as described except to the extent set forth below. [id number] time provided Patient arrives complaining of atraumatic back pain which she states is chronic. He also notes orthopnea and dyspnea. He subjectively does not feel as if his symptoms are cardiac related. The patient required assistance transferring from the wheelchair to the medical examination bed
[2018-02-10] MEDS ORDERED: Acetaminophen 325 MG TABLET PO ONE (08:26)
[2018-02-10 08:32] LABS: Basophils % 0.3 %; Eosinophils # 0.1 K/mcL (0.0-0.6); Eosinophils % 0.6 %; Hematocrit 40.2 % (37.5-50.1); Hemoglobin 13.6 g/dL (12.9-16.9); Immature Granulocytes % 0.4 % (0-4); Lymphocytes # 0.6 K/mcL (0.6-4.6); Mean Corpuscular HGB Conc 33.8 g/dL (31.6-35.5); Mean Corpuscular Hemoglobin 30.7 pg (28.0-33.3); Mean Corpuscular Volume 90.7 fL (83.0-100.0); Mean Platelet Volume 10.4 fL (9.4-12.4); Monocytes # 0.7 K/mcL (0.0-1.3); Monocytes % 6.3 %; Neutrophils # 9.9 K/mcL (1.6-8.9); Platelet Count 170 K/mcL (140-400); Red Blood Count 4.43 M/mcL (4.19-5.50); Red Cell Distribution Width 12.2 % (11.5-14.5); Segmented Neutrophils % 87.4 %
[2018-02-10] MEDS ORDERED: Ketorolac 15 MG/ML VIAL IVP ONE ×2 (08:35→22:40)
[2018-02-10] MEDS ORDERED: Levofloxacin 750 MG/150 ML 750 MG/150 ML BAG IVPB ONE (08:36)
[2018-02-10 08:54] LABS: Troponin I < 0.03 ng/mL (< 0.04)
[2018-02-10 08:55] LABS: BUN/Creatinine Ratio 22 (6-26); Blood Urea Nitrogen 16 mg/dL (8-23); Carbon Dioxide 22 mEq/L (23-29); Chloride 111 mEq/L (98-107); Glucose 196 mg/dL (70-105); Osmolality,Calculated 297 (280-300); Potassium 3.9 mEq/L (3.5-5.1); Sodium 140 mEq/L (136-145); eGFR For African Americans > 60 (> 60); eGFR For Non-African Americans > 60 (> 60)
[2018-02-10] MEDS ORDERED: Naloxone 0.4 MG/ML INJ IVP PRN (09:24)
[2018-02-10] MEDS ORDERED: Nitroglycerin 0.4 MG TAB.SUBL SL PRN (09:27)
--- NOTE | 2018-02-10 09:35 | Internal Med History&Physical ---
Date of Encounter: 02/10/18 Time of Encounter: 09:31 Internal Medicine - H&P: HPI Chief complaint: Shortness of breath/right-sided chest pain Admitted From: Emergency Dept Plans for Post Hospital Care: Home History of present illness: Mr. 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 Patient describes that the pain is mainly on the infra- axillary region and persistent in nature. There is no radiation for the pain but the pain gets worse with the different position and relieved by rest and pain medication. Patient denies fever, palpitation, tingling, headache, changes in the vision. Workup in the emergency room: Patient was evaluated in the emergency room. Basic labs were drawn. Chest x-ray was done. Chest x-ray shows right lower lobe pneumonia. Reason for admission: Right lower lobe pneumonia in a patient who has a background history of a COPD which requires intravenous antibiotics and close monitoring of the respiratory status. Family history: Noncontributory Past Med Surg Social Fam HX - Past Medical History Medical history: COPD, coronary artery disease, hepatitis, hypertension Psychiatric history: no psych history - Past Surgical History Surgical History: appendectomy, cholecystectomy, orthopedic, other - Social History Smoking Status: Never smoker Smokeless Tobacco Status: No Alcohol use: rarely Drug use: none - Family History Father Adopted: Yes Living Status: Hx Family Cardiac Disorders: Yes Internal Medicine - H&P: Meds Carvedilol [Coreg] 12.5 mg PO BID #60 tablet 03/13/16 [Rx] Isosorbide MONOnitrate (24 HR) [Imdur] 30 mg PO DAILY #30 tab.er.24h 03/13/16 [ Rx] Nitroglycerin 0.4 mg SL Q5MIN PRN #30 tab.subl 03/13/16 [Rx] Albuterol Sulfate [Proair Hfa] 1 puff IH DAILY 03/23/16 [History] Losartan Potassium [Cozaar] 100 mg PO DAILY 03/23/16 [History] OxyCODONE/APAP 5/325 [Percocet 5/325 MG] 1 tab PO Q6HR PRN #15 tablet 08/03/17 [ Rx] Baclofen [Lioresal] 10 mg PO TID 02/10/18 [History] Budesonide/Formoterol 160/4.5 [Symbicort 160/4.5] 2 puff IH BIDR 02/10/18 [ History] Ibuprofen [Ibuprofen] 800 mg PO TID 02/10/18 [History] amLODIPine [Norvasc] 5 mg PO DAILY 02/10/18 [History] 3 Allergy/AdvReac Type Severity Reaction Status Date / Time Sulfa (Sulfonamide Allergy Hives Verified 02/10/18 07:43 Antibiotics) codeine AdvReac Irritable Verified 02/10/18 09:34 All Systems PM: A 10-system review of systems was performed and is negative for pertinent findings except as documented above in the HPI. - Constitutional Constitutional: no chills, no fever(s), no night sweats - EENT Eyes: no change in vision, no discharge, no pain, no photophobia Ears: no ear discharge, no ear pain, no tinnitus Nose, mouth and throat: no dysphagia, no nasal discharge, no neck pain, no sore throat - Cardiovascular Cardiovascular ROS IM: chest pain, dyspnea, no diaphoresis, no lightheadedness, no palpitations, no syncope - Respiratory Respiratory: no cough, no dyspnea, no wheezing, no excessive phlegm production - Gastrointestinal Gastrointestinal: no abdominal pain, no diarrhea, no hematemesis, no hematochezia, no melena, no nausea, no vomiting - Musculoskeletal Musculoskeletal ROS IM: no numbness, no tingling - Integumentary Integumentary IM: no rash, no unusual bruising - Neurological Neurological ROS: no confusion, no convulsions, no focal weakness, no numbness, no tingling, no tremor(s) - Hematologic/Lymphatic Hematologic/Lymphatic: no easy bruising - Constitutional Vitals: Temp Pulse Resp BP Pulse Ox 99.4 F 56 16 110/90 94 02/10/18 08:04 02/10/18 09:05 02/10/18 09:05 02/10/18 09:05 02/10/18 09:05 General appearance: Present: A&O X 3, pleasant, no acute distress, answers questions appropriately - Head Head exam: Present: atraumatic, normocephalic - Eye Eye exam: Present: PERRL, conjuntiva pink, sclera anicteric Pupils: Present: PERRL - Neck Neck exam general surgery: Present: supple, trachea midline. Absent: lymphadenopathy - Respiratory Respiratory exam: Present: CTAB. Absent: accessory muscle use, rales, rhonchi, wheezes - Cardiovascular Cardiovascular exam: Present: RRR, +S1, +S2. Absent: diastolic murmur, gallop, rubs, systolic murmur - GI/Abdominal GI/Abdominal exam: Present: normal bowel sounds, soft, no peritoneal signs. Absent: distended, tenderness - Extremities Exam Extremities exam: Present: warm, radial pulses palpable and symmetrical. Absent : calf tenderness, cyanotic, pedal edema - Neurological Exam Neurological exam: Present: CN II-XII intact, oriented X3, no focal deficits. 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 Patient is a nonsmoker. Admitted with right lower lobe pneumonia. Vitals stable. Assessment: Right lower lobe pneumonia in a patient who is a background history of for COPD Plan: Admit as inpatient. Intravenous levofloxacin 750 mg every day. Intravenous Solu-Medrol 40 mg every 8 hours. Inhaled bronchodilators Close monitoring of the respiratory status. If clinically worsens/concerned regarding COPD etiology: Please call pulmonary for further evaluation I examined this patient in the emergency department room #2. patient's daughter was at bedside. Plan of care explained to the patient and his daughter. They verbalize understanding. Qualifiers: Laterality: right Lung location: lower lobe of lung Qualified Code(s): J18.1 - Lobar pneumonia, unspecified organism (2) Essential hypertension Current Visit: No Status: Chronic Assessment and plan: Patient is known to have a hypertension. At this point patient's blood pressure medication and resume. We will monitor his blood pressure very closely. (3) Morbid obesity Current Visit: No Status: Chronic Assessment and plan: Patient's BMI is 42. Patient will get benefit from outpatient bariatric surgery evaluation. (4) Chronic low back pain Current Visit: Yes Status: Acute Assessment and plan: Patient has previously multiple fractures of the vertebrae. This is the reason patient has a chronic back pain. Patient is been getting follow-up by the pain specialist. Patient tells me that there is a plan for interventional pain procedures sometime in upcoming future Qualifiers: Back pain laterality: unspecified Sciatica presence: unspecified whether sciatica present Qualified Code(s): M54.5 - Low back pain; G89.29 - Other chronic pain; G89.29 - Other chronic pain (5) DVT prophylaxis Current Visit: Yes Status: Acute Assessment and plan: Heparin Medical decision making: This patient is a moderate to severe risk of worsening in spite of being on appropriate medication due to the underlying complex medical condition. - Time Spent With Patient Total time spent is greater than 50% in coordination of care (as documented) at patient's floor/unit and/or counseling patient:
[2018-02-10] MEDS: Ipratropium/Albuterol Neb 3 ML IH SCH ×3 (11:26→20:21)
[2018-02-10] MEDS: *HR* Heparin 5,000 UNIT/ML VIAL SQ SCH ×2 (16:34→23:57)
[2018-02-10] MEDS: MethylPREDNISolone 40 MG/ML VIAL IVP SCH ×2 (16:34→23:57)
[2018-02-10] MEDS: *HR* OxyCODONE/APAP 5/325 TABLET PO PRN (19:51)
[2018-02-10] MEDS: Baclofen 10 MG TABLET PO SCH (19:52)
[2018-02-11] MEDS: Ipratropium/Albuterol Neb 3 ML IH SCH ×7 (00:40→23:58)
[2018-02-11 05:18] LABS: Basophils % 0.1 %; Eosinophils % 0.1 %; Hematocrit 40.6 % (37.5-50.1); Immature Granulocytes % 1.3 % (0-4); Lymphocytes # 0.7 K/mcL (0.6-4.6); Lymphocytes % 6.4 %; Mean Corpuscular HGB Conc 34.5 g/dL (31.6-35.5); Mean Corpuscular Hemoglobin 30.9 pg (28.0-33.3); Mean Corpuscular Volume 89.6 fL (83.0-100.0); Mean Platelet Volume 10.6 fL (9.4-12.4); Monocytes # 0.2 K/mcL (0.0-1.3); Monocytes % 1.5 %; Neutrophils # 9.2 K/mcL (1.6-8.9); Platelet Count 170 K/mcL (140-400); Red Blood Count 4.53 M/mcL (4.19-5.50); Red Cell Distribution Width 12.1 % (11.5-14.5); Segmented Neutrophils % 90.6 %
[2018-02-11 05:33] LABS: Alanine Aminotransferase 81 Units/L (7-52); Albumin/Globulin Ratio 1.5 (1.1-2.2); Alkaline Phosphatase 89 Units/L (34-104); Aspartate Amino Transferase 49 Units/L (13-39); BUN/Creatinine Ratio 28 (6-26); Bilirubin,Total 1.1 mg/dL (0.3-1.0); Blood Urea Nitrogen 19 mg/dL (8-23); Calcium 9.3 mg/dL (8.6-10.3); Carbon Dioxide 22 mEq/L (23-29); Chloride 108 mEq/L (98-107); Chol/HDL Ratio 2.2 (0-4.9); Cholesterol 182 mg/dL (< 200); Globulin 2.6 g/dL (2.4-3.5); Glucose 202 mg/dL (70-105); HDL Cholesterol 81 mg/dL (40-59); LDL Cholesterol,Calculated 90 mg/dL (0-99); Magnesium 1.8 mg/dL (1.6-2.6); Osmolality,Calculated 294 (280-300); Phosphorous 2.1 mg/dL (2.7-4.5); Potassium 3.5 mEq/L (3.5-5.1); Sodium 138 mEq/L (136-145); Total Protein 6.6 g/dL (6.4-8.9); Triglycerides 53 mg/dL (< 150); eGFR For African Americans > 60 (> 60); eGFR For Non-African Americans > 60 (> 60)
[2018-02-11 05:37] LABS: INR 1.3; Prothrombin Time 13.7 Seconds (9.4-12.1)
[2018-02-11 05:39] LABS: Activated Partial Thrombo Time 28.9 Seconds (26.0-36.0)
[2018-02-11] MEDS: amLODIPine 5 MG TABLET PO SCH (07:28)
[2018-02-11] MEDS: Aspirin 81 MG TAB.CHEW PO SCH (07:28)
[2018-02-11] MEDS: Isosorbide MONOnitrate (24 HR) 30 MG TAB.ER.24H PO SCH (07:29)
[2018-02-11] MEDS: Baclofen 10 MG TABLET PO SCH ×3 (07:29→20:12)
[2018-02-11] MEDS: *HR* Heparin 5,000 UNIT/ML VIAL SQ SCH ×3 (07:30→23:50)
[2018-02-11] MEDS: MethylPREDNISolone 40 MG/ML VIAL IVP SCH ×3 (07:32→23:50)
[2018-02-11] MEDS: Levofloxacin 750 MG/150 ML 750 MG/150 ML BAG IVPB SCH (07:32)
[2018-02-11] MEDS ORDERED: cloNIDine HCl 0.1 MG TABLET PO ONE ×2 (08:04→23:43)
[2018-02-11] MEDS: *HR* OxyCODONE/APAP 5/325 TABLET PO PRN ×2 (08:19→20:12)
--- NOTE | 2018-02-11 09:23 | Internal Med Progress Note ---
Date of Encounter: 02/11/18 Time of Encounter: 08:30 - Assessment and plan (1) CAP (community acquired pneumonia) Current Visit: Yes Status: Acute Assessment and plan: Patient has history of COPD. Right lower lobe pneumonia found on chest x-ray. Denies any shortness of breath. Admits to a non-productive cough. Remained afebrile overnight WBC 10.2 today. Continue telemetry Continue IV Levaquin Continue IV steroids and bronchodilators Closely monitor respiratory status CBC D BMP in the morning Urine Legionella antigen, strep pneumococcal antigen, mycoplasma antigen Heparin for DVT prophylaxis Qualifiers: Laterality: right Lung location: lower lobe of lung Qualified Code(s): J18.1 - Lobar pneumonia, unspecified organism (2) Hypertensive urgency Current Visit: Yes Status: Acute Assessment and plan: Hypertensive urgency with systolic blood pressures in the 200s this morning. Etiology unclear however the patient reports that he may have missed some doses of blood pressure medications. He was given hydralazine which initially did not help with hypertension so he was given a one-time dose of clonidine as well. HTN improved. As of 919 SBP 139/69 Continue home anti-HTN medications Continue hydralazine when necessary Monitor closely (3) Morbid obesity Current Visit: Yes Status: Chronic Assessment and plan: Discussed lifestyle modifications (4) Essential hypertension Current Visit: Yes Status: Chronic (5) Chronic low back pain Current Visit: Yes Status: Acute Assessment and plan: Previous multiple fractures of vertebrae; reporting chronic back pain. Continue oxycodone per home regimen Qualifiers: Back pain laterality: unspecified Sciatica presence: unspecified whether sciatica present Qualified Code(s): M54.5 - Low back pain; G89.29 - Other chronic pain; G89.29 - Other chronic pain (6) DVT prophylaxis Current Visit: Yes Status: Acute - Time Spent With Patient Total time spent is greater than 50% in coordination of care (as documented) at patient's floor/unit and/or counseling patient: Greater than 35 minutes - Subjective Interval history: Mr. Lewis is a 67-year-old male with a past medical history of COPD, CAD, hepatitis C and HTN. Patient has been having right-sided chest pain for approximately last 4-5 days and also notes some midsternal chest pain lasting about 15-20 seconds. Workup in the ED was grossly normal, negative troponins 3 , no lab abnormalities identified, chest x-ray was positive for right lower lobe pneumonia. He was admitted and started on IV antibiotics. Denies any shortness of breath, fever, chills. She states that he feels like he is feeling better and was hoping to discharge today. Chest pain has also subsided. He was noted to have hypertension this morning with SBP in the 200s. Not medically stable for discharge today. - Constitutional Vitals: Temp Pulse Resp BP Pulse Ox 97.5 F L 65 18 139/69 97 02/11/18 06:32 02/11/18 08:17 02/11/18 06:32 02/11/18 09:20 02/11/18 06:32 General appearance: Present: A&O X 3, pleasant, no acute distress, answers questions appropriately - Head Head exam: Present: atraumatic, normocephalic - Eye Eye exam: Present: PERRL, conjuntiva pink, sclera anicteric Pupils: Present: PERRL - Neck Neck exam general surgery: Present: supple, trachea midline. Absent: lymphadenopathy - Respiratory Respiratory exam: Present: CTAB. Absent: accessory muscle use, rales, rhonchi, wheezes - Cardiovascular Cardiovascular exam: Present: RRR, +S1, +S2. Absent: diastolic murmur, gallop, rubs, systolic murmur - GI/Abdominal GI/Abdominal exam: Present: normal bowel sounds, soft, no peritoneal signs. Absent: distended, tenderness - Extremities Exam Extremities exam: Present: warm, radial pulses palpable and symmetrical. Absent : calf tenderness, cyanotic, pedal edema - Neurological Exam Neurological exam: Present: CN II-XII intact, oriented X3, no focal deficits. Absent: pronater drift, facial droop, speech deficit - Skin Skin exam: Present: dry, intact Internal Medicine: Result - Labs CBC & Chem 7: 02/11/18 04:56 02/11/18 04:56 Labs: Short CBC 02/11/18 Range/Units 04:56 WBC 10.2 (4.3-11.1) K/mcL Hgb 14.0 (12.9-16.9) g/dL Hct 40.6 (37.5-50.1) % Plt Count 170 (140-400) K/mcL Neutrophils # 9.2 H (1.6-8.9) K/mcL BMP 02/11/18 04:56 Sodium 138 Potassium 3.5 Chloride 108 H Carbon Dioxide 22 L BUN 19 Creatinine 0.67 L Glucose 202 H Calcium 9.3 Cardiac Enzymes 02/10/18 02/10/18 02/10/18 Range/Units 09:41 15:35 20:50 Troponin I < 0.03 < 0.03 < 0.03 (< 0.04) ng/mL Liver Function 02/11/18 Range/Units 04:56 Total Bilirubin 1.1 H (0.3-1.0) mg/dL AST 49 H (13-39) Units/L ALT 81 H (7-52) Units/L Alkaline Phosphatase 89 (34-104) Units/L Albumin 4.0 (3.5-5.7) g/dL - ABG Interpretation ABG results: PT/INR, D-dimer PT 13.7 Seconds (9.4-12.1) H 02/11/18 04:56 Consult Discharge Plan - Plan Referrals: Tab Starks Jr, MD [Primary Care Provider] -
[2018-02-12] MEDS ORDERED: Ibuprofen 800 MG TABLET PO PRN (00:01)
[2018-02-12] MEDS: Ipratropium/Albuterol Neb 3 ML IH SCH ×3 (04:19→11:14)
[2018-02-12 05:24] LABS: Basophils % 0.1 %; Hematocrit 40.4 % (37.5-50.1); Hemoglobin 13.7 g/dL (12.9-16.9); Immature Granulocytes % 1.6 % (0-4); Lymphocytes # 0.8 K/mcL (0.6-4.6); Lymphocytes % 4.9 %; Mean Corpuscular HGB Conc 33.9 g/dL (31.6-35.5); Mean Corpuscular Hemoglobin 30.6 pg (28.0-33.3); Mean Corpuscular Volume 90.4 fL (83.0-100.0); Mean Platelet Volume 10.9 fL (9.4-12.4); Monocytes # 0.7 K/mcL (0.0-1.3); Monocytes % 4.2 %; Platelet Count 203 K/mcL (140-400); Red Blood Count 4.47 M/mcL (4.19-5.50); Red Cell Distribution Width 12.4 % (11.5-14.5); Segmented Neutrophils % 89.2 %
[2018-02-12 05:30] LABS: Neutrophils # 14.2 K/mcL (1.6-8.9)
[2018-02-12 05:50] LABS: BUN/Creatinine Ratio 33 (6-26); Blood Urea Nitrogen 21 mg/dL (8-23); Calcium 9.4 mg/dL (8.6-10.3); Carbon Dioxide 25 mEq/L (23-29); Chloride 107 mEq/L (98-107); Glucose 206 mg/dL (70-105); Osmolality,Calculated 295 (280-300); Potassium 3.9 mEq/L (3.5-5.1); Sodium 138 mEq/L (136-145); eGFR For African Americans > 60 (> 60); eGFR For Non-African Americans > 60 (> 60)
[2018-02-12] MEDS: MethylPREDNISolone 40 MG/ML VIAL IVP SCH (08:15)
[2018-02-12] MEDS: Aspirin 81 MG TAB.CHEW PO SCH (08:15)
[2018-02-12] MEDS: *HR* Heparin 5,000 UNIT/ML VIAL SQ SCH (08:15)
[2018-02-12] MEDS: amLODIPine 5 MG TABLET PO SCH (08:16)
[2018-02-12] MEDS: Isosorbide MONOnitrate (24 HR) 30 MG TAB.ER.24H PO SCH (08:16)
[2018-02-12] MEDS: Baclofen 10 MG TABLET PO SCH (08:16)
[2018-02-12] MEDS: Levofloxacin 750 MG/150 ML 750 MG/150 ML BAG IVPB SCH (08:17)
[2018-02-12] MEDS ORDERED: *HR* OxyCODONE/APAP 5/325 TABLET PO SCH (09:00)
[2018-02-12 10:51] VITALS: BP 127/67
--- NOTE | 2018-02-12 12:42 | Discharge Summary ---
- NOTES TO OUTPATIENT PROVIDER Notes to Outpatient Provider: Patient treated for community acquired pneumonia. Initially presented with some chest pain which is since subsided and did not return during this admission. ACS workup unremarkable. Incidental finding of pneumonia; treat with Levaquin. Discharged on oral Levaquin. Stable at discharge. Instructed to follow-up with PCP for reassessment following discharge. Orders not resulted at time of discharge: Pending orders 02/11/18 11:42 Sputum Culture [Culture,Sputum with Gram Stain] [RM] Routine 02/11/18 12:20 Mycoplasma pneumoniae IgG IgM Routine 02/13/18 04:00 BMP [Basic Metabolic Panel] AM 0400 Complete Blood Count [HEME] AM 0400 02/14/18 04:00 Complete Blood Count [HEME] AM 0400 Date of Encounter: 02/12/18 Time of Encounter: 12:39 - Discharge Diagnosis (1) CAP (community acquired pneumonia) Priority: Primary Status: Acute Assessment and Plan: Patient has history of COPD. Right lower lobe pneumonia found on chest x-ray. Denies any shortness of breath. Admits to a non-productive cough. Remained afebrile overnight WBC increased but no bandemia only increase in neutrophils and wbc was expected due to to demargination. Clinically the patient is continuing to improve. He is resting comfortably on room air without any respiratory distress. I witnessed the patient ambulating without respiratory distress or difficulty. Due to lack of fever and continuing improvement in clinical condition the patient is medically stable for discharge. Continue Levaquin by mouth 750mg x4 days steroid burst on discharge He has been instructed to continue his home bronchodilators Qualifiers: Laterality: right Lung location: lower lobe of lung Qualified Code(s): J18.1 - Lobar pneumonia, unspecified organism (2) Hypertensive urgency Priority: Secondary Status: Resolved Assessment and Plan: Resolved (3) Morbid obesity Priority: Secondary Status: Chronic (4) Essential hypertension Priority: Secondary Status: Chronic Assessment and Plan: Resume anti-HTN medications (5) Chronic low back pain Priority: Secondary Status: Acute Assessment and Plan: Previous multiple fractures of vertebrae; reporting chronic back pain. Continue oxycodone per home regimen on discharge Qualifiers: Back pain laterality: unspecified Sciatica presence: unspecified whether sciatica present Qualified Code(s): M54.5 - Low back pain; G89.29 - Other chronic pain; G89.29 - Other chronic pain (6) DVT prophylaxis Priority: Secondary Status: Acute Hospital course: Mr. Lewis is a 67 year old male presenting with right-sided chest pain and shortness of breath. ACS workup found to be negative. CXR found right lower lobe pneumonia. Patient has had an uneventful hospital course. He is being treated with IV Levaquin, bronchodilators and IV steroids. He has remained afebrile over the last 48 hours and reports that he is feeling much better today. The patient has no dyspnea and is resting comfortably on room air without respiratory distress. I was able to witness the patient ambulating without any respiratory distress or difficulty. There is some mild increase in WBCs today is likely due to the IV steroids secondary to demyelination. Given his improving clinical condition I believe the patient is medically stable for discharge. He has been instructed to follow-up with his PCP in one week. Additionally, he has been noted that this shortness of breath continues to worsen or a cough/fever develops he should really follow up with his PCP. Also , he is informed that if shortness of breath is severe he should return to the ED. Discharge discussed with: patient, nurse - Time Spent with Patient Total time spent providing and/or coordinating discharge services: Greater than 30 minutes - Discharge Medications Home Medications: Carvedilol [Coreg] 12.5 mg PO BID #60 tablet 03/13/16 [Rx] Isosorbide MONOnitrate (24 HR) [Imdur] 30 mg PO DAILY #30 tab.er.24h 03/13/16 [ Rx] Nitroglycerin 0.4 mg SL Q5MIN PRN #30 tab.subl 03/13/16 [Rx] Albuterol Sulfate [Proair Hfa] 1 - 2 puff IH Q6H PRN 03/23/16 [History] Losartan Potassium [Cozaar] 100 mg PO DAILY 03/23/16 [History] OxyCODONE/APAP 5/325 [Percocet 5/325 MG] 1 tab PO Q6HR PRN #15 tablet 08/03/17 [ Rx] Baclofen [Lioresal] 10 mg PO TID 02/10/18 [History] Budesonide/Formoterol 160/4.5 [Symbicort 160/4.5] 2 puff IH BIDR 02/10/18 [ History] Ibuprofen 800 mg PO TID 02/10/18 [History] amLODIPine [Norvasc] 5 mg PO DAILY 02/10/18 [History] Levofloxacin [Levaquin] 750 mg PO DAILY #4 tablet 02/12/18 [Rx] PredniSONE [Deltasone] 50 mg PO DAILY #5 tablet 02/12/18 [Rx] Allergies/Adverse Reactions: 3 Allergy/AdvReac Type Severity Reaction Status Date / Time Sulfa (Sulfonamide Allergy Hives Verified 02/10/18 07:43 Antibiotics) codeine AdvReac Irritable Verified 02/10/18 09:34 Date of admission: 02/10/18 09:24 Primary care physician: Tab Starks Jr, MD Discharging clinician: Kenny Echevarria Anticipated date of discharge: 02/12/18 - Constitutional Vitals: Temp Pulse Resp BP Pulse Ox 98 F 70 17 127/67 93 02/12/18 10:49 02/12/18 10:49 02/12/18 11:16 02/12/18 10:49 02/12/18 11:16 General appearance: Present: A&O X 3, pleasant, no acute distress, answers questions appropriately - Head Head exam: Present: atraumatic, normocephalic - Eye Eye exam: Present: PERRL, conjuntiva pink, sclera anicteric Pupils: Present: PERRL - Neck Neck exam general surgery: Present: supple, trachea midline. Absent: lymphadenopathy - Respiratory Respiratory exam: Present: CTAB. Absent: accessory muscle use, rales, rhonchi, wheezes - Cardiovascular Cardiovascular exam: Present: RRR, +S1, +S2. Absent: diastolic murmur, gallop, rubs, systolic murmur - GI/Abdominal GI/Abdominal exam: Present: normal bowel sounds, soft, no peritoneal signs. Absent: distended, tenderness - Extremities Exam Extremities exam: Present: warm, radial pulses palpable and symmetrical. Absent : calf tenderness, cyanotic, pedal edema - Neurological Exam Neurological exam: Present: CN II-XII intact, oriented X3, no focal deficits. Absent: pronater drift, facial droop, speech deficit - Skin Skin exam: Present: dry, intact - Patient Status Disposition: Home, Self-Care Condition: Fair Overall status at discharge: patient is progressing back to baseline - Discharge Instructions Follow Up With: Tab Starks Jr, MD [Primary Care Provider] - 02/16/18 2:30 pm - Diet and Activity Activity: increase activity as tolerated Diet: advance to your usual diet
--- NOTE | 2018-02-12 12:51 | Internal Med Progress Note ---
Date of Encounter: 02/12/18 Time of Encounter: 10:00 - Assessment and plan (1) CAP (community acquired pneumonia) Current Visit: Yes Status: Acute Assessment and plan: Patient has history of COPD. Right lower lobe pneumonia found on chest x-ray. Denies any shortness of breath. Admits to a non-productive cough. Remained afebrile overnight WBC 10.2 today. Continue telemetry Continue IV Levaquin Continue IV steroids and bronchodilators Closely monitor respiratory status CBC D BMP in the morning Urine Legionella antigen, strep pneumococcal antigen, mycoplasma antigen Heparin for DVT prophylaxis Qualifiers: Laterality: right Lung location: lower lobe of lung Qualified Code(s): J18.1 - Lobar pneumonia, unspecified organism (2) Hypertensive urgency Current Visit: Yes Status: Resolved (3) Morbid obesity Current Visit: Yes Status: Chronic (4) Essential hypertension Current Visit: Yes Status: Chronic (5) Chronic low back pain Current Visit: Yes Status: Acute Qualifiers: Back pain laterality: unspecified Sciatica presence: unspecified whether sciatica present Qualified Code(s): M54.5 - Low back pain; G89.29 - Other chronic pain; G89.29 - Other chronic pain (6) DVT prophylaxis Current Visit: Yes Status: Acute - Time Spent With Patient Total time spent is greater than 50% in coordination of care (as documented) at patient's floor/unit and/or counseling patient: - Subjective Interval history: Mr. Lewis is a 67-year-old male with a past medical history of COPD, CAD, hepatitis C and HTN. Patient has been having right-sided chest pain for approximately last 4-5 days and also notes some midsternal chest pain lasting about 15-20 seconds. Workup in the ED was grossly normal, negative troponins 3 , no lab abnormalities identified, chest x-ray was positive for right lower lobe pneumonia. He was admitted and started on IV antibiotics. Denies any shortness of breath, fever, chills or cough. She states that he feels like he is feeling better and was hoping to discharge today, however, his WBC is increasing overnight. Chest pain has also subsided. BP improving. Not medically stable for discharge today. - Constitutional Vitals: Temp Pulse Resp BP Pulse Ox 98 F 70 17 127/67 93 02/12/18 10:49 02/12/18 10:49 02/12/18 11:16 02/12/18 10:49 02/12/18 11:16 General appearance: Present: A&O X 3, pleasant, no acute distress, answers questions appropriately - Head Head exam: Present: atraumatic, normocephalic - Eye Eye exam: Present: PERRL, conjuntiva pink, sclera anicteric Pupils: Present: PERRL - Neck Neck exam general surgery: Present: supple, trachea midline. Absent: lymphadenopathy - Respiratory Respiratory exam: Present: CTAB. Absent: accessory muscle use, rales, rhonchi, wheezes - Cardiovascular Cardiovascular exam: Present: RRR, +S1, +S2. Absent: diastolic murmur, gallop, rubs, systolic murmur - GI/Abdominal GI/Abdominal exam: Present: normal bowel sounds, soft, no peritoneal signs. Absent: distended, tenderness - Extremities Exam Extremities exam: Present: warm, radial pulses palpable and symmetrical. Absent : calf tenderness, cyanotic, pedal edema - Neurological Exam Neurological exam: Present: CN II-XII intact, oriented X3, no focal deficits. Absent: pronater drift, facial droop, speech deficit - Skin Skin exam: Present: dry, intact Internal Medicine: Result - Labs CBC & Chem 7: 02/12/18 04:30 02/12/18 04:30 Labs: Short CBC 02/12/18 Range/Units 04:30 WBC 15.9 H D (4.3-11.1) K/mcL Hgb 13.7 (12.9-16.9) g/dL Hct 40.4 (37.5-50.1) % Plt Count 203 (140-400) K/mcL Neutrophils # 14.2 H (1.6-8.9) K/mcL BMP 02/12/18 04:30 Sodium 138 Potassium 3.9 Chloride 107 Carbon Dioxide 25 BUN 21 Creatinine 0.64 L Glucose 206 H Calcium 9.4 - ABG Interpretation ABG results: PT/INR, D-dimer PT 13.7 Seconds (9.4-12.1) H 02/11/18 04:56 Consult Discharge Plan - Plan Referrals: Tab Starks Jr, MD [Primary Care Provider] - 02/16/18 2:30 pm
--- NOTE | 2018-02-13 15:55 | Electrocardiograph Report ---
[address] [address] Test Date: 2018-02-10 Pat Name: Russel Lewis Department: 103 Room: 3B14 Gender: M Hog Man: ALLAN : 1950 Requested By: Vin Rowell Order Number: [id number] Reading MD: Haja Lovelace Measurements Intervals New Site Rate: 66 P: 31 SC: 182 QRS: 45 QRSD: 94 T: 50 QT: 381 QTc: 394 Interpretive Statements SINUS RHYTHM Electronically Signed On 02-13-2018 15:54:02 EDT by Haja Lovelace
[2018-02-14 06:16] LABS: Mycoplasma pneumoniae IgG 0.57 U/L (<=0.09)
== END 2018-02-12 16:05 | disposition home or self-care (01) | DRG 194 ==
LOC: 3BNU 07:42 → EMEROO 07:42 → 3BNU 09:38
PROVIDERS: ADMIT Nurse Practitioner; ATTEND Nurse Practitioner

== ENCOUNTER 2018-04-18 08:10 | Observation (INO) ==
[2018-04-18] MEDS ORDERED: Aspirin 81 MG TAB.CHEW PO ONE (09:11)
[2018-04-18] MEDS ORDERED: Nitroglycerin 0.4 MG TAB.SUBL SL PRN ×2 (09:12→12:23)
--- NOTE | 2018-04-18 09:13 | Emergency Department Note ---
Disposition Clinical Impression: Chest pain Qualifiers: Chest pain type: unspecified Qualified Code(s): R07.9 - Chest pain, unspecified Disposition: Admitted As Inpatient Condition: Fair Referrals: Tab Starks Jr, MD [Primary Care Provider] - Forms: ED Satisfaction Letter Chest Pain HPI - General Chief Complaint: ED Chest Pain Stated Complaint: Chest Pain Source: patient Limitations: no limitations Vital Signs Reviewed: Yes Nursing Notes Reviewed: Yes - History of Present Illness HPI Narrative: 68-year-old male presents emergency department with concern for chest pain. States that last night it woke him up from sleeping. States that it did not radiate anywhere. Describes it as sharp in nature. Did not take any medications were. Reports a history of hypertension and hyperlipidemia. States that his had heart catheterizations in the past, but no stents. Denies any cough, fever. States that he does not currently have any chest pain at this time. States that when you press on his chest that hurts a little bit. Severity scale (1-10): 2 - Related Data Home Medications Medication Instructions Recorded Confirmed Albuterol Sulfate [Proair Hfa] 1 - 2 puff IH Q6H PRN 03/23/16 02/10/18 Losartan Potassium [Cozaar] 100 mg PO DAILY 03/23/16 02/10/18 Baclofen [Lioresal] 10 mg PO TID 02/10/18 02/10/18 Budesonide/Formoterol 160/4.5 2 puff IH BIDR 02/10/18 02/10/18 [Symbicort 160/4.5] Ibuprofen 800 mg PO TID 02/10/18 02/10/18 amLODIPine [Norvasc] 5 mg PO DAILY 02/10/18 02/10/18 Previous Rx's Medication Instructions Recorded Carvedilol [Coreg] 12.5 mg PO BID #60 tablet 03/13/16 Isosorbide MONOnitrate (24 HR) 30 mg PO DAILY #30 tab.er.24h 03/13/16 [Imdur] Nitroglycerin 0.4 mg SL Q5MIN PRN #30 tab.subl 03/13/16 OxyCODONE/APAP 5/325 [Percocet 1 tab PO Q6HR PRN #15 tablet 08/03/17 5/325 MG] Levofloxacin [Levaquin] 750 mg PO DAILY #4 tablet 02/12/18 PredniSONE [Deltasone] 50 mg PO DAILY #5 tablet 02/12/18 Allergies Allergy/AdvReac Type Severity Reaction Status Date / Time Sulfa (Sulfonamide Allergy Hives Verified 02/10/18 07:43 Antibiotics) codeine AdvReac Irritable Verified 02/10/18 09:34 All systems ED: reviewed and negative except as stated. Review of Systems: As Per HPI Constitutional: Denies: fever Cardiovascular: Reports: chest pain Respiratory: Denies: cough, dyspnea Gastrointestinal: Denies: abdominal pain, nausea, vomiting Genitourinary: Denies: dysuria Musculoskeletal: Denies: back pain Neurological: Denies: weakness, numbness, paresthesias Chest Pain PMH - Past Medical History Medical history: Reports: COPD, coronary artery disease, hepatitis, hypertension Surgical history: Reports: appendectomy, cholecystectomy, orthopedic, other Psychiatric history: Reports: no psych history - Social History Smoking Status: Never smoker Alcohol use: Reports: rarely Drug use: Reports: none Physical Exam - General Limitations: no limitations General appearance: alert - Head Head exam: atraumatic, normocephalic - Eye Eye exam: Present: EOMI. Absent: scleral icterus, conjunctival injection - ENT ENT exam: normal oropharynx - Neck Neck exam: Present: trachea midline. Absent: tenderness, meningismus - Chest Chest inspection: Present: symmetric chest wall rise - Respiratory Respiratory exam: Present: normal lung sounds bilaterally. Absent: respiratory distress - Cardiovascular Cardiovascular exam: Present: regular rate, normal rhythm, normal heart sounds - Abdominal Exam Abdominal exam: Present: soft, Non-Tender. Absent: distention, guarding, rebound, rigidity - Extremities Exam Extremities exam: Present: normal capillary refill - Back Exam Back exam: Present: full ROM - Neurological Exam Neurological exam: Present: alert, oriented X3 - Psychiatric Psychiatric exam: Present: normal affect, normal mood - Skin Skin exam: Present: warm, dry, intact, normal color. Absent: rash Course Vital Signs Temperature 98.1 F 04/18/18 08:12 Pulse Rate 65 04/18/18 08:12 Respiratory Rate 16 04/18/18 08:12 Blood Pressure 128/79 04/18/18 08:12 O2 Sat by Pulse Oximetry 99 04/18/18 08:12 Temperature 98.1 F 07/11/18 08:14 Pulse Rate 53 04/18/18 10:34 Respiratory Rate 18 04/18/18 10:34 Blood Pressure 144/85 04/18/18 10:34 O2 Sat by Pulse Oximetry 96 04/18/18 10:34 Oxygen Delivery Oxygen Delivery Room Air Chest Pain - MDM Narrative Medical decision making narrative: 68-year-old male presents emergency department with concern for chest pain. Patient's had previous heart catheterization before. Does have some coronary artery disease that was not syncopal 2 years ago. Currently not having any chest pain now. Patient was given aspirin here in the emergency department. Chest x-ray was obtained and did not reveal an acute cardiac pulmonary process. Troponin was negative. EKG did not reveal any ischemic ST changes. Patient with hypertension, hyperlipidemia, with age greater 65 with a moderately suspicious story in the setting of known coronary artery disease. Discussed admission with the hospitalist. They agreed to accept the patient. Patient agrees with the plan of admission. Hemodynamically stable and not in any acute distress at that time. - Lab Data Result diagrams: 04/18/18 09:41 04/18/18 09:41 Lab Results 04/18/18 04/18/18 04/18/18 Range/Units 09:41 09:41 09:41 WBC 6.3 (4.3-11.1) K/mcL RBC 4.43 (4.19-5.50) M/mcL Hgb 14.0 (12.9-16.9) g/dL Hct 41.4 (37.5-50.1) % MCV 93.5 (83.0-100.0) fL MCH 31.6 (28.0-33.3) pg MCHC 33.8 (31.6-35.5) g/dL RDW 13.4 (11.5-14.5) % Plt Count 191 (140-400) K/mcL MPV 10.3 (9.4-12.4) fL Immature Gran % 0.8 (0-4) % Seg Neutrophils % 59.5 % Lymphocytes % 23.4 % Monocytes % 13.1 % Eosinophils % 2.7 % Basophils % 0.5 % Neutrophils # 3.7 (1.6-8.9) K/mcL Lymphocytes # 1.5 (0.6-4.6) K/mcL Monocytes # 0.8 (0.0-1.3) K/mcL Eosinophils # 0.2 (0.0-0.6) K/mcL Basophils # 0.0 (0.0-0.2) K/mcL PT 11.9 (9.4-12.1) Seconds INR 1.1 APTT 31.3 (26.0-36.0) Seconds Sodium (136-145) mEq/L Potassium (3.5-5.1) mEq/L Chloride (98-107) mEq/L Carbon Dioxide (23-29) mEq/L BUN (8-23) mg/dL Creatinine (0.70-1.30) mg/dL Est GFR ( Amer) (> 60) Est GFR (Non-Af Amer) (> 60) BUN/Creatinine Ratio (6-26) Glucose (70-105) mg/dL Calculated Osmolality (280-300) Calcium (8.6-10.3) mg/dL Troponin I (< 0.04) ng/mL B-Natriuretic Peptide 22 (Less than 100) pg/mL 04/18/18 Range/Units 09:41 WBC (4.3-11.1) K/mcL RBC (4.19-5.50) M/mcL Hgb (12.9-16.9) g/dL Hct (37.5-50.1) % MCV (83.0-100.0) fL MCH (28.0-33.3) pg MCHC (31.6-35.5) g/dL RDW (11.5-14.5) % Plt Count (140-400) K/mcL MPV (9.4-12.4) fL Immature Gran % (0-4) % Seg Neutrophils % % Lymphocytes % % Monocytes % % Eosinophils % % Basophils % % Neutrophils # (1.6-8.9) K/mcL Lymphocytes # (0.6-4.6) K/mcL Monocytes # (0.0-1.3) K/mcL Eosinophils # (0.0-0.6) K/mcL Basophils # (0.0-0.2) K/mcL PT (9.4-12.1) Seconds INR APTT (26.0-36.0) Seconds Sodium 137 (136-145) mEq/L Potassium 4.6 (3.5-5.1) mEq/L Chloride 105 (98-107) mEq/L Carbon Dioxide 25 (23-29) mEq/L BUN 16 (8-23) mg/dL Creatinine 0.74 (0.70-1.30) mg/dL Est GFR ( Amer) > 60 (> 60) Est GFR (Non-Af Amer) > 60 (> 60) BUN/Creatinine Ratio 22 (6-26) Glucose 141 H (70-105) mg/dL Calculated Osmolality 288 (280-300) Calcium 9.7 (8.6-10.3) mg/dL Troponin I < 0.03 (< 0.04) ng/mL B-Natriuretic Peptide (Less than 100) pg/mL - EKG Data EKG attestation: Yes I reviewed and interpreted this EKG. EKG results narrative: 8:16 A jugular A 54 bpm, DE interval 166 ms, QRS duration 88 ms, QT 394 ms, QTC 380 ms, normal axis. Sinus bradycardia with a ventricular rate of 54 bpm. There is no evidence of any ischemic ST changes on this EKG. Heart Score - Score History: Moderately Suspicious EKG: Normal Age: Greater than 65 Risk Factors: 1-2 risk factors Troponin: Less than normal limit HEART Score Total: 4
[2018-04-18] MEDS ORDERED: 0.9 % Sodium Chloride 1,000 ML IVC ONE (09:15)
[2018-04-18 09:50] LABS: Basophils % 0.5 %; Eosinophils # 0.2 K/mcL (0.0-0.6); Eosinophils % 2.7 %; Hematocrit 41.4 % (37.5-50.1); Immature Granulocytes % 0.8 % (0-4); Lymphocytes # 1.5 K/mcL (0.6-4.6); Lymphocytes % 23.4 %; Mean Corpuscular HGB Conc 33.8 g/dL (31.6-35.5); Mean Corpuscular Hemoglobin 31.6 pg (28.0-33.3); Mean Corpuscular Volume 93.5 fL (83.0-100.0); Mean Platelet Volume 10.3 fL (9.4-12.4); Monocytes # 0.8 K/mcL (0.0-1.3); Monocytes % 13.1 %; Neutrophils # 3.7 K/mcL (1.6-8.9); Platelet Count 191 K/mcL (140-400); Red Blood Count 4.43 M/mcL (4.19-5.50); Red Cell Distribution Width 13.4 % (11.5-14.5); Segmented Neutrophils % 59.5 %
[2018-04-18 10:01] LABS: INR 1.1; Prothrombin Time 11.9 Seconds (9.4-12.1)
[2018-04-18 10:04] LABS: Activated Partial Thrombo Time 31.3 Seconds (26.0-36.0)
[2018-04-18 10:12] LABS: Troponin I < 0.03 ng/mL (< 0.04)
[2018-04-18 10:15] LABS: BUN/Creatinine Ratio 22 (6-26); Blood Urea Nitrogen 16 mg/dL (8-23); Calcium 9.7 mg/dL (8.6-10.3); Carbon Dioxide 25 mEq/L (23-29); Chloride 105 mEq/L (98-107); Glucose 141 mg/dL (70-105); Osmolality,Calculated 288 (280-300); Potassium 4.6 mEq/L (3.5-5.1); Sodium 137 mEq/L (136-145); eGFR For African Americans > 60 (> 60); eGFR For Non-African Americans > 60 (> 60)
--- NOTE | 2018-04-18 11:37 | Emergency Department Note ---
Disposition Clinical Impression: Chest pain Qualifiers: Chest pain type: unspecified Qualified Code(s): R07.9 - Chest pain, unspecified Disposition: Admitted As Inpatient Condition: Fair General Adult HPI - General Chief complaint: ED Chest Pain Stated complaint: Chest Pain Source: patient Mode of arrival: ambulatory Limitations: no limitations Nursing Notes Reviewed: Yes Vital Signs Reviewed: Yes - History of Present Illness Pain Scale: 2 - Related Data Home Medications Medication Instructions Recorded Confirmed Albuterol Sulfate [Proair Hfa] 1 - 2 puff IH Q6H PRN 03/23/16 04/18/18 Losartan Potassium [Cozaar] 100 mg PO DAILY 03/23/16 04/18/18 Baclofen [Lioresal] 10 mg PO TID 02/10/18 04/18/18 Budesonide/Formoterol 160/4.5 2 puff IH BIDR 02/10/18 04/18/18 [Symbicort 160/4.5] Ibuprofen 800 mg PO TID PRN 02/10/18 04/18/18 amLODIPine [Norvasc] 5 mg PO DAILY 02/10/18 04/18/18 Previous Rx's Medication Instructions Recorded Carvedilol [Coreg] 12.5 mg PO BID #60 tablet 03/13/16 Isosorbide MONOnitrate (24 HR) 30 mg PO DAILY #30 tab.er.24h 03/13/16 [Imdur] Nitroglycerin 0.4 mg SL Q5MIN PRN #30 tab.subl 03/13/16 OxyCODONE/APAP 5/325 [Percocet 1 tab PO Q6HR PRN #15 tablet 08/03/17 5/325 MG] Allergies Allergy/AdvReac Type Severity Reaction Status Date / Time Sulfa (Sulfonamide Allergy Hives Verified 02/10/18 07:43 Antibiotics) codeine AdvReac Irritable Verified 02/10/18 09:34 Constitutional: Denies: fever Cardiovascular: Reports: chest pain Respiratory: Denies: cough, dyspnea Gastrointestinal: Denies: abdominal pain, nausea, vomiting Genitourinary: Denies: dysuria Musculoskeletal: Denies: back pain Neurological: Denies: weakness, numbness, paresthesias Past Medical History - Past Medical History Medical history: Reports: COPD, coronary artery disease, hepatitis, hypertension Surgical history: Reports: appendectomy, cholecystectomy, orthopedic, other Psychiatric history: Reports: no psych history - Social History Smoking Status: Never smoker Smokeless Tobacco Status: No Alcohol use: Reports: rarely Drug use: Reports: none Physical Exam - General Limitations: no limitations General appearance: alert Course Vital Signs Temperature 98.1 F 04/18/18 08:12 Pulse Rate 65 04/18/18 08:12 Respiratory Rate 16 04/18/18 08:12 Blood Pressure 128/79 04/18/18 08:12 O2 Sat by Pulse Oximetry 99 04/18/18 08:12 Temperature 98.2 F 04/18/18 12:06 Pulse Rate 55 04/18/18 12:06 Respiratory Rate 18 04/18/18 12:06 Blood Pressure 177/82 04/18/18 12:06 O2 Sat by Pulse Oximetry 97 04/18/18 12:06 Oxygen Delivery Oxygen Delivery Room Air Medical Decision Making - Lab Data Result diagrams: 04/18/18 09:41 04/18/18 09:41 Lab Results 04/18/18 04/18/18 04/18/18 Range/Units 09:41 09:41 09:41 WBC 6.3 (4.3-11.1) K/mcL RBC 4.43 (4.19-5.50) M/mcL Hgb 14.0 (12.9-16.9) g/dL Hct 41.4 (37.5-50.1) % MCV 93.5 (83.0-100.0) fL MCH 31.6 (28.0-33.3) pg MCHC 33.8 (31.6-35.5) g/dL RDW 13.4 (11.5-14.5) % Plt Count 191 (140-400) K/mcL MPV 10.3 (9.4-12.4) fL Immature Gran % 0.8 (0-4) % Seg Neutrophils % 59.5 % Lymphocytes % 23.4 % Monocytes % 13.1 % Eosinophils % 2.7 % Basophils % 0.5 % Neutrophils # 3.7 (1.6-8.9) K/mcL Lymphocytes # 1.5 (0.6-4.6) K/mcL Monocytes # 0.8 (0.0-1.3) K/mcL Eosinophils # 0.2 (0.0-0.6) K/mcL Basophils # 0.0 (0.0-0.2) K/mcL PT 11.9 (9.4-12.1) Seconds INR 1.1 APTT 31.3 (26.0-36.0) Seconds Sodium (136-145) mEq/L Potassium (3.5-5.1) mEq/L Chloride (98-107) mEq/L Carbon Dioxide (23-29) mEq/L BUN (8-23) mg/dL Creatinine (0.70-1.30) mg/dL Est GFR ( Amer) (> 60) Est GFR (Non-Af Amer) (> 60) BUN/Creatinine Ratio (6-26) Glucose (70-105) mg/dL Calculated Osmolality (280-300) Calcium (8.6-10.3) mg/dL Troponin I (< 0.04) ng/mL B-Natriuretic Peptide 22 (Less than 100) pg/mL 04/18/18 Range/Units 09:41 WBC (4.3-11.1) K/mcL RBC (4.19-5.50) M/mcL Hgb (12.9-16.9) g/dL Hct (37.5-50.1) % MCV (83.0-100.0) fL MCH (28.0-33.3) pg MCHC (31.6-35.5) g/dL RDW (11.5-14.5) % Plt Count (140-400) K/mcL MPV (9.4-12.4) fL Immature Gran % (0-4) % Seg Neutrophils % % Lymphocytes % % Monocytes % % Eosinophils % % Basophils % % Neutrophils # (1.6-8.9) K/mcL Lymphocytes # (0.6-4.6) K/mcL Monocytes # (0.0-1.3) K/mcL Eosinophils # (0.0-0.6) K/mcL Basophils # (0.0-0.2) K/mcL PT (9.4-12.1) Seconds INR APTT (26.0-36.0) Seconds Sodium 137 (136-145) mEq/L Potassium 4.6 (3.5-5.1) mEq/L Chloride 105 (98-107) mEq/L Carbon Dioxide 25 (23-29) mEq/L BUN 16 (8-23) mg/dL Creatinine 0.74 (0.70-1.30) mg/dL Est GFR ( Amer) > 60 (> 60) Est GFR (Non-Af Amer) > 60 (> 60) BUN/Creatinine Ratio 22 (6-26) Glucose 141 H (70-105) mg/dL Calculated Osmolality 288 (280-300) Calcium 9.7 (8.6-10.3) mg/dL Troponin I < 0.03 (< 0.04) ng/mL B-Natriuretic Peptide (Less than 100) pg/mL Attestation Statement - Attestation Attestation: I examined this patient and my medical decision-making was reviewed with the Resident Physician, Dr. Baptiste. I agree with the documented findings, disposition and treatment plan as described except to the extent set forth below. Patient is a 68-year-old white male with a history of hypertension and high cholesterol known CAD per heart catheter and 2016 who presents to the emergency department with complaints of chest pain that occurred waking him from sleep at about 3 AM associated with shortness of breath diaphoresis lasting approximately 30 minutes. Patient states he had no recurrence of these symptoms it resolved spontaneously and he has not had a recurrence of this chest discomfort. Patient is chest pain-free on arrival with stable vital signs. Patient is asymptomatic at time of presentation. I agree with patient's physical exam findings as documented. Patient received aspirin in the emergency department and chest pain workup was initiated. Initial EKG was sinus rhythm with no acute ischemia and no change from prior EKGs. Reviewed heart catheter report in the system showing 30% LAD lesion that was discovered on heart catheter in 2016. Patient has not followed up with cardiology since that time. Patient's lab evaluation, chest x-ray were all within normal limits. Patient has not had a recurrence of this pain while in the ED. Symptoms concerning for unstable angina with known CAD, we will admit the patient for further evaluation of this chest discomfort. Case was discussed with hospitalist who agrees with admission and will resume management the patient.
[2018-04-18] MEDS ORDERED: Naloxone 0.4 MG/ML INJ IVP PRN (12:18)
[2018-04-18] MEDS ORDERED: *HR* OxyCODONE/APAP 5/325 TABLET PO PRN (12:23)
[2018-04-18] MEDS ORDERED: Isosorbide MONOnitrate (24 HR) 30 MG TAB.ER.24H PO SCH (12:30)
[2018-04-18] MEDS ORDERED: amLODIPine 5 MG TABLET PO SCH (12:30)
--- NOTE | 2018-04-18 12:51 | Internal Med History&Physical ---
Date of Encounter: 04/18/18 Time of Encounter: 12:48 Internal Medicine - H&P: HPI Chief complaint: Chest pain Admitted From: Home Plans for Post Hospital Care: Home History of present illness: Mr. Lewis is a 68 year old male with medical history of hypertension, COPD, known coronary artery disease with prior stenting, who presented to the ER with complaints of chest pain that woke him up around 2 AM from his sleep. He reports chest pain as substernal, nonradiating, without associated shortness of breath or dizziness. He reports diaphoresis because he felt his bed postoperatively sweat. He denies any other symptoms. The patient had cardiac catheterization done 03/2016 this facility which showed 30% stenosis in the mid LAD, 80% stenosis in the proximal RCA, 40-50% stenosis in the mid RCA. Initial workup in the ER was negative, EKG is nonischemic, troponin is negative. At the time of review, the patient is chest pain-free and has no complaints. He has not had the chest pain since after 2 AM. He will be placed on observation to cycle his troponins, he has refused stating for stress tests in the morning but also wants be discharged home if his troponins are negative. He has an appointment with his primary care physician on Monday04/20/2018 and will recommend stress test as outpatient if trops are negative He is full code. Past Med Surg Social Fam HX - Past Medical History Medical history: COPD, coronary artery disease, hepatitis, hypertension Additional medical history: broken back 6 months ago Psychiatric history: no psych history - Past Surgical History Surgical History: appendectomy, cholecystectomy, orthopedic, other Additional surgical history: left knee replacement, left elbow surgery, lumbar surgery - Social History Smoking Status: Never smoker Smokeless Tobacco Status: No Alcohol use: rarely Drug use: none - Family History Father Adopted: Yes Living Status: Hx Family Cardiac Disorders: Yes Internal Medicine - H&P: Meds Carvedilol [Coreg] 12.5 mg PO BID #60 tablet 03/13/16 [Rx] Isosorbide MONOnitrate (24 HR) [Imdur] 30 mg PO DAILY #30 tab.er.24h 03/13/16 [ Rx] Nitroglycerin 0.4 mg SL Q5MIN PRN #30 tab.subl 03/13/16 [Rx] Albuterol Sulfate [Proair Hfa] 1 - 2 puff IH Q6H PRN 03/23/16 [History] Losartan Potassium [Cozaar] 100 mg PO DAILY 03/23/16 [History] OxyCODONE/APAP 5/325 [Percocet 5/325 MG] 1 tab PO Q6HR PRN #15 tablet 08/03/17 [ Rx] Baclofen [Lioresal] 10 mg PO TID 02/10/18 [History] Budesonide/Formoterol 160/4.5 [Symbicort 160/4.5] 2 puff IH BIDR 02/10/18 [ History] Ibuprofen 800 mg PO TID PRN 02/10/18 [History] amLODIPine [Norvasc] 5 mg PO DAILY 02/10/18 [History] 3 Allergy/AdvReac Type Severity Reaction Status Date / Time Sulfa (Sulfonamide Allergy Hives Verified 02/10/18 07:43 Antibiotics) codeine AdvReac Irritable Verified 02/10/18 09:34 All Systems PM: A 10-system review of systems was performed and is negative for pertinent findings except as documented above in the HPI. - Constitutional Constitutional: no chills, no fever(s), no night sweats - EENT Eyes: no change in vision, no discharge, no pain, no photophobia Ears: no ear discharge, no ear pain, no tinnitus Nose, mouth and throat: no dysphagia, no nasal discharge, no neck pain, no sore throat - Cardiovascular Cardiovascular ROS IM: as per HPI - Respiratory Respiratory: no cough, no dyspnea, no wheezing, no excessive phlegm production - Gastrointestinal Gastrointestinal: no abdominal pain, no diarrhea, no hematemesis, no hematochezia, no melena, no nausea, no vomiting - Musculoskeletal Musculoskeletal ROS IM: no numbness, no tingling - Integumentary Integumentary IM: no rash, no unusual bruising - Neurological Neurological ROS: no confusion, no convulsions, no focal weakness, no numbness, no tingling, no tremor(s) - Hematologic/Lymphatic Hematologic/Lymphatic: no easy bruising - Constitutional Vitals: Temp Pulse Resp BP Pulse Ox 98.2 F 55 18 177/82 97 04/18/18 12:06 04/18/18 12:04/18/18 12:06 04/18/18 12:06 04/18/18 12:06 General appearance: Present: A&O X 3, pleasant - Head Head exam: Present: atraumatic, normocephalic - Eye Eye exam: Present: PERRL, conjuntiva pink, sclera anicteric Pupils: Present: PERRL - Neck Neck exam general surgery: Present: supple, trachea midline. Absent: lymphadenopathy - Respiratory Respiratory exam: Present: CTAB. Absent: accessory muscle use, rales, rhonchi, wheezes - Cardiovascular Cardiovascular exam: Present: RRR, +S1, +S2. Absent: diastolic murmur, gallop, rubs, systolic murmur - GI/Abdominal GI/Abdominal exam: Present: normal bowel sounds, soft, no peritoneal signs. Absent: distended, tenderness - Extremities Exam Extremities exam: Present: warm, radial pulses palpable and symmetrical. Absent : calf tenderness, cyanotic, pedal edema - Neurological Exam Neurological exam: Present: CN II-XII intact, oriented X3, no focal deficits. Absent: pronater drift, facial droop, speech deficit - Skin Skin exam: Present: dry, intact Internal Med - H&P Results - Labs CBC & Chem 7: 04/18/18 09:41 04/18/18 09:41 - Assessment and plan (1) Chest pain Current Visit: Yes Status: Acute Assessment and plan: EKG unremarkable. Cycle troponins. No active chest pain at this time. Continue aspirin, Lipitor, beta abbey. Check lipid panel fasting with a.m. labs. Qualifiers: Chest pain type: unspecified Qualified Code(s): R07.9 - Chest pain, unspecified (2) CAD (coronary artery disease) Current Visit: Yes Status: Chronic Assessment and plan: Continue ASA, BB, Lipitor, Isosorbide Qualifiers: Coronary Disease-Associated Artery/Lesion type: [place] artery [place] vs. transplanted heart: [place] heart Associated angina: angina presence unspecified Qualified Code(s): I25.10 - Atherosclerotic heart disease of [place] coronary artery without angina pectoris (3) Essential hypertension Current Visit: Yes Status: Chronic Assessment and plan: Continue home medications. (4) Hyperlipidemia Current Visit: Yes Status: Chronic Assessment and plan: Continue Lipitor. Qualifiers: Hyperlipidemia type: unspecified Qualified Code(s): E78.5 - Hyperlipidemia , unspecified - Time Spent With Patient Total time spent is greater than 50% in coordination of care (as documented) at patient's floor/unit and/or counseling patient:
[2018-04-18] MEDS: Baclofen 10 MG TABLET PO SCH ×2 (14:18→20:02)
[2018-04-18 21:51] VITALS: BP 165/85
[2018-04-18] MEDS ORDERED: Budesonide/Formoterol 160/4.5 MDI IH SCH (22:00)
--- NOTE | 2018-04-19 08:15 | Electrocardiograph Report ---
[place] [facility] Test Date: 2018-04-18 Pat Name: Russel Lewis Department: 104 Room: 2A26 Gender: M [employer]: : 1950 Requested By: Jean Pierre Lubin Order Number: [id number] Reading MD: Tab Starks Measurements Intervals [place] Rate: 54 P: 38 NV: 166 QRS: 35 QRSD: 88 T: 44 QT: 394 QTc: 380 Interpretive Statements SINUS BRADYCARDIA Electronically Signed On 04-19-2018 8:13:36 EDT by Tab Starks
--- NOTE | 2018-04-19 08:35 | Event Note ---
Date of Encounter: 04/19/18 Time of Encounter: 08:34 Patient was discharged home after 3rd negative set of troponin by night [employer]. In clinically stable condition.
[2018-04-19] MEDS ORDERED: Aspirin Enteric Coated 81 MG Tablet PO SCH (09:00)
== END 2018-04-18 22:38 | disposition home or self-care (01) ==
LOC: EMEROO 08:10 → 2ANU 08:10
PROVIDERS: ADMIT Internal Medicine; ATTEND Internal Medicine

== ENCOUNTER 2018-10-28 11:50 | Inpatient (IN) ==
[2018-10-28] MEDS ORDERED: 0.9 % Sodium Chloride 1,000 ML IVC ONE ×2 (12:06→13:52)
--- NOTE | 2018-10-28 12:25 | Emergency Department Note ---
Disposition Clinical Impression: Bradycardia, Lightheaded Disposition: Admitted As Inpatient Condition: Good Referrals: Tab Starks Jr, MD [Primary Care Provider] - Forms: ED Satisfaction Letter General Adult HPI - General Chief complaint: ED Dizziness Stated complaint: dizziness, weakness Time Seen by Provider: 10/28/18 12:06 Source: patient Nursing Notes Reviewed: Yes Vital Signs Reviewed: Yes - History of Present Illness HPI Narrative: Patient is a 68-year-old male with past medical history including COPD, hypertension, hepatitis, presenting with chief complaint of lightheadedness that has been intermittent since this morning. Patient states one and half weeks ago, he was diagnosed with bronchitis and was given a Z-[place] and steroid taper. He states he has finished both medications. He complains of continued generalized weakness for the past week and a half. States his cough is improved. Today, he states he took his medications and went outside to shovel. After shoveling, he states he stood up quickly and felt lightheaded. He felt like he was going to pass out but did not. He took his blood pressure and he states his blood pressure at 10:30 AM was 88 systolic. He continued to take his blood pressure and he states it was fluctuating. States every time he bent down and stood back up he felt lightheaded. He denies any chest pain, shortness of breath, new cough, fevers, abdominal pain, nausea, dysuria, diarrhea, lower show me swelling. He states he is not on any blood thinners and denies any blood loss. Denies any changes in his blood pressure medications. Patient states he has vertigo and states this is different than that. He denies the room spinning. Pain Scale: 0 - Related Data Home Medications Medication Instructions Recorded Confirmed Albuterol Sulfate [Proair Hfa] 1 - 2 puff IH Q6H PRN 03/23/16 04/18/18 Losartan Potassium [Cozaar] 100 mg PO DAILY 03/23/16 04/18/18 Baclofen [Lioresal] 10 mg PO TID 02/10/18 04/18/18 Budesonide/Formoterol 160/4.5 2 puff IH BIDR 02/10/18 04/18/18 [Symbicort 160/4.5] Ibuprofen 800 mg PO TID PRN 02/10/18 04/18/18 amLODIPine [Norvasc] 5 mg PO DAILY 02/10/18 04/18/18 Previous Rx's Medication Instructions Recorded Carvedilol [Coreg] 12.5 mg PO BID #60 tablet 03/13/16 Isosorbide MONOnitrate (24 HR) 30 mg PO DAILY #30 tab.er.24h 03/13/16 [Imdur] Nitroglycerin 0.4 mg SL Q5MIN PRN #30 tab.subl 03/13/16 OxyCODONE/APAP 5/325 [Percocet 1 tab PO Q6HR PRN #15 tablet 08/03/17 5/325 MG] diazePAM [Valium] 2 mg PO BID PRN 3 Days #6 tablet 04/30/18 Allergies Allergy/AdvReac Type Severity Reaction Status Date / Time Sulfa (Sulfonamide Allergy Hives Verified 10/28/18 11:55 Antibiotics) codeine AdvReac Irritable Verified 10/28/18 11:55 All systems ED: reviewed and negative except as stated. Review of Systems: As Per HPI Constitutional: Denies: fever, chills ENT ED: Reports: congestion Cardiovascular: Denies: chest pain, palpitations Respiratory: Reports: cough. Denies: dyspnea Gastrointestinal: Denies: abdominal pain, nausea, vomiting, diarrhea, melena, hematochezia Genitourinary: Denies: dysuria, hematuria Neurological: Reports: weakness, other (lightheaded). Denies: headache Past Medical History - Past Medical History Attestation: Yes The following information was validated with the patient. Source: patient Medical history: Reports: COPD, coronary artery disease, hepatitis, hypertension Surgical history: Reports: appendectomy, cholecystectomy, orthopedic, other Psychiatric history: Reports: no psych history - Social History Smoking Status: Never smoker Smokeless Tobacco Status: No Alcohol use: Reports: rarely Drug use: Reports: none Physical Exam - General Limitations: no limitations General appearance: alert, in no apparent distress - Head Head exam: atraumatic, normocephalic - Eye Eye exam: Present: normal appearance, EOMI - ENT ENT exam: normal exam, normal oropharynx, mucous membranes moist - Neck Neck exam: Present: normal inspection, full ROM - Chest Chest inspection: Present: normal inspection, symmetric chest wall rise - Respiratory Respiratory exam: Present: normal lung sounds bilaterally. Absent: respiratory distress, wheezes - Cardiovascular Cardiovascular exam: Present: regular rate, normal rhythm, normal heart sounds - Abdominal Exam Abdominal exam: Present: soft, Non-Tender. Absent: tenderness, distention, guarding, rebound, rigidity - Extremities Exam Extremities exam: Present: normal inspection, full ROM, normal capillary refill. Absent: tenderness, pedal edema - Neurological Exam Neurological exam: Present: alert, oriented X3 - Psychiatric Psychiatric exam: Present: normal affect, normal mood - Skin Skin exam: Present: warm, dry, intact, normal color Course Vital Signs Temperature 97.7 F 10/28/18 11:52 Pulse Rate 71 10/28/18 11:52 Respiratory Rate 18 10/28/18 11:52 Blood Pressure 105/68 10/28/18 11:52 O2 Sat by Pulse Oximetry 97 10/28/18 11:52 Temperature 97.7 F 10/28/18 12:09 Pulse Rate 45 10/28/18 14:47 Respiratory Rate 18 10/28/18 14:47 Blood Pressure 112/65 10/28/18 14:47 O2 Sat by Pulse Oximetry 96 10/28/18 14:47 Oxygen Delivery Oxygen Delivery Room Air Medical Decision Making - [facility] Narrative Medical decision making narrative: Patient presenting with near syncope, generalized weakness and concerns that his blood pressure was low. We will obtain cardiac workup including EKG, troponin, chest x-ray, evaluate electrolytes, lactate, BNP. Vitals are stable. Patient denies any chest pain or shortness of breath at this time. He denies history of stent placements. We will give him 1 L normal saline bolus. 12:40 Patient's heart rate did drop in the 30s. Symptoms are most likely secondary to symptomatic bradycardia. EKG was obtained and shows sinus bradycardia with heart rate 47. No evidence of heart block. ID interval is normal. He is on ca rvedilol, 12.5mg BID. Will admit for further management. 13:30 Troponin normal. No electrolyte abnormality. Chest x-ray without acute cardiopulmonary abnormality. He since heart rate is in the 40s. He states when he gets up he feels lightheaded. We will admit for symptomatic bradycardia. Hospitalist consulted at this time. 14:40 Discussed with hospitalist, Dr. Beavers. We will consult cardiology and discussed with him for any further recommendations. Patient is admitted to 2A. Discussed with Dr. Kee, Cardiology. No further recommendations at this time. He is aware of the consult. Patient is remaining stable and is asymptomatic at this time. - Medical Records Medical records reviewed: Yes I reviewed the patient's medical records. - Lab Data Lab results reviewed: Yes I reviewed the patient's lab results. Result diagrams: 10/28/18 12:15 10/28/18 12:15 Lab Results 10/28/18 10/28/18 10/28/18 Range/Units 12:15 12:15 12:31 WBC 10.5 (4.3-11.1) K/mcL RBC 4.46 (4.19-5.50) M/mcL Hgb 13.9 (12.9-16.9) g/dL Hct 41.6 (37.5-50.1) % MCV 93.3 (83.0-100.0) fL MCH 31.2 (28.0-33.3) pg MCHC 33.4 (31.6-35.5) g/dL RDW 11.9 (11.5-14.5) % Plt Count 228 (140-400) K/mcL MPV 10.0 (9.4-12.4) fL Immature Gran % 0.9 (0-4) % Seg Neutrophils % 61.0 % Lymphocytes % 20.3 % Monocytes % 13.3 % Eosinophils % 3.8 % Basophils % 0.7 % Neutrophils # 6.4 (1.6-8.9) K/mcL Lymphocytes # 2.1 (0.6-4.6) K/mcL Monocytes # 1.4 H (0.0-1.3) K/mcL Eosinophils # 0.4 (0.0-0.6) K/mcL Basophils # 0.1 (0.0-0.2) K/mcL Sodium 140 (136-145) mEq/L Potassium 3.8 (3.5-5.1) mEq/L Chloride 107 (98-107) mEq/L Carbon Dioxide 25 (23-29) mEq/L BUN 32 H (8-23) mg/dL Creatinine 1.08 (0.70-1.30) mg/dL Est GFR ( Amer) > 60 (> 60) Est GFR (Non-Af Amer) > 60 (> 60) BUN/Creatinine Ratio 30 H (6-26) Glucose 138 H (70-105) mg/dL Calculated Osmolality 299 (280-300) Lactic Acid (0.5-2.2) mmol/L Calcium 9.7 (8.6-10.3) mg/dL Troponin I < 0.03 (< 0.04) ng/mL B-Natriuretic Peptide 37 (Less than 100) pg/mL 10/28/18 Range/Units 12:31 WBC (4.3-11.1) K/mcL RBC (4.19-5.50) M/mcL Hgb (12.9-16.9) g/dL Hct (37.5-50.1) % MCV (83.0-100.0) fL MCH (28.0-33.3) pg MCHC (31.6-35.5) g/dL RDW (11.5-14.5) % Plt Count (140-400) K/mcL MPV (9.4-12.4) fL Immature Gran % (0-4) % Seg Neutrophils % % Lymphocytes % % Monocytes % % Eosinophils % % Basophils % % Neutrophils # (1.6-8.9) K/mcL Lymphocytes # (0.6-4.6) K/mcL Monocytes # (0.0-1.3) K/mcL Eosinophils # (0.0-0.6) K/mcL Basophils # (0.0-0.2) K/mcL Sodium (136-145) mEq/L Potassium (3.5-5.1) mEq/L Chloride (98-107) mEq/L Carbon Dioxide (23-29) mEq/L BUN (8-23) mg/dL Creatinine (0.70-1.30) mg/dL Est GFR ( Amer) (> 60) Est GFR (Non-Af Amer) (> 60) BUN/Creatinine Ratio (6-26) Glucose (70-105) mg/dL Calculated Osmolality (280-300) Lactic Acid 1.0 (0.5-2.2) mmol/L Calcium (8.6-10.3) mg/dL Troponin I (< 0.04) ng/mL B-Natriuretic Peptide (Less than 100) pg/mL - Radiology Data Radiology results reviewed: Yes I reviewed the patient's radiology results. Chest X-Ray 10/28/18 12:06 IMPRESSION: No acute process. D/ / Chase Cruz MD / Chase Cruz MD Interpreting Provider: Chase Cruz MD - EKG Data EKG #1 EKG attestation: Yes I reviewed and interpreted this EKG. EKG results narrative: EKG obtained at 1236 shows sinus bradycardia with heart rate 47. No ST elevation or depression. Compared to prior EKG on 04/18/2018 which shows sinus bradycardia with heart rate 54. No acute changes. Attestation Statement - Attestation Attestation: Resident Attestation: I examined this patient and my medical decision making was reviewed with the Resident Physician. I agree with the documented findings, disposition and treatment plan as described except to the extent set forth below. We independently had [id number] contact with the patient... Patient presented for evaluation of dizziness and low blood pressure. Patient was shoveling snow when he had which he can best described as a weird sensation. Took his blood pressure and found his blood pressure to be low in the 90s. Patient states he has been dealing with bronchitis and has been on recent antibiotics as well as steroids. Patient states no increasing shortness of breath, worsening cough, or sputum production. The patient denies chest pain shortness of breath. Feels like he might pass out if he stands up. Patient's heart rate was noted to be in the high 30s when I was in the room. The patient's blood pressure was 110 systolic. Patient is on multiple blood pressure medications as well as carvedilol. Patient will undergo further evaluation for cardiac workup as well as pneumonia. No acute distress, regular rhythm, bradycardic, clear to auscultation bilaterally, abdomen soft nontender palpation. No specific etiology on blood work. Nonspecific EKG and chest x-ray. The patient continues to be bradycardic in the 40s. Patient is asymptomatic while lying in bed becomes lightheaded upon standing. Patient will be given a second liter of fluids as well as admitted for further evaluation and monitoring.
[2018-10-28 13:03] LABS: Basophils # 0.1 K/mcL (0.0-0.2); Basophils % 0.7 %; Eosinophils # 0.4 K/mcL (0.0-0.6); Eosinophils % 3.8 %; Hematocrit 41.6 % (37.5-50.1); Hemoglobin 13.9 g/dL (12.9-16.9); Immature Granulocytes % 0.9 % (0-4); Lymphocytes # 2.1 K/mcL (0.6-4.6); Lymphocytes % 20.3 %; Mean Corpuscular HGB Conc 33.4 g/dL (31.6-35.5); Mean Corpuscular Hemoglobin 31.2 pg (28.0-33.3); Mean Corpuscular Volume 93.3 fL (83.0-100.0); Monocytes # 1.4 K/mcL (0.0-1.3); Monocytes % 13.3 %; Neutrophils # 6.4 K/mcL (1.6-8.9); Platelet Count 228 K/mcL (140-400); Red Blood Count 4.46 M/mcL (4.19-5.50); Red Cell Distribution Width 11.9 % (11.5-14.5)
[2018-10-28 13:26] LABS: BUN/Creatinine Ratio 30 (6-26); Blood Urea Nitrogen 32 mg/dL (8-23); Calcium 9.7 mg/dL (8.6-10.3); Carbon Dioxide 25 mEq/L (23-29); Chloride 107 mEq/L (98-107); Glucose 138 mg/dL (70-105); Osmolality,Calculated 299 (280-300); Potassium 3.8 mEq/L (3.5-5.1); Sodium 140 mEq/L (136-145); Troponin I < 0.03 ng/mL (< 0.04); eGFR For Non-African Americans > 60 (> 60)
--- NOTE | 2018-10-28 18:23 | Internal Med History&Physical ---
Date of Encounter: 10/28/18 Time of Encounter: 11:00 Internal Medicine - H&P: HPI Chief complaint: Bradycardia Admitted From: Home Plans for Post Hospital Care: Home History of present illness: Patient is a 68-year-old male with past medical history significant for an arterial disease with left heart catheterization on 03/2016 which showed 30% stenosis in the mid LAD, 80% stenosis in the proximal RCA, 40-50% stenosis in the mid RCA and hypertension who presents to the ER on 10/28/18 due to weakness. Patient reports of after shoveling snow he experienced weakness and therefore checked his blood pressures. Patient noticed that his blood pressures gradually decreased, was hypotensive, noticed that his heart rate decreased and was bradycardic. Patient was brought in to the ER for further evaluation. In ER patients patient was found to be bradycardic with heart rate in the 40s. Echocardiogram in 2016 showed LVEF of 70% with mild left ventricular diastolic dysfunction. Nuclear medicine stress tests on 05/2018 was negative for ischemia. Cardiology was consulted from the ER and will follow the patient for recommendations. Patient will be admitted to medical surgical floor for symptomatic bradycardia. Past Med Surg Social Fam HX - Past Medical History Medical history: COPD, coronary artery disease, hepatitis, hypertension Additional medical history: chronic back pain Psychiatric history: no psych history - Past Surgical History Surgical History: appendectomy, cholecystectomy, orthopedic, other Additional surgical history: LEFT KNEE REPLACEMENT, BACK broken 08/2017, NEUROSTIMULATOR IN BACK, Partial Left elbow removed - Social History Smoking Status: Never smoker Smokeless Tobacco Status: No Alcohol use: rarely Drug use: none - Family History Father Adopted: Yes Living Status: Hx Family Cardiac Disorders: Yes Internal Medicine - H&P: Meds Isosorbide MONOnitrate (24 HR) [Imdur] 30 mg PO DAILY #30 tab.er.24h 03/13/16 [Rx] Nitroglycerin 0.4 mg SL Q5MIN PRN #30 tab.subl 03/13/16 [Rx] Albuterol Sulfate [Proair Hfa] 1 - 2 puff IH Q6H PRN 03/23/16 [History] Losartan Potassium [Cozaar] 100 mg PO DAILY 03/23/16 [History] Budesonide/Formoterol 160/4.5 [Symbicort 160/4.5] 2 puff IH BIDR 02/10/18 [History] Ibuprofen 800 mg PO TID PRN 02/10/18 [History] amLODIPine [Norvasc] 5 mg PO DAILY 02/10/18 [History] Carvedilol 12.5 mg PO BID 10/28/18 [History] OxyCODONE/APAP 5/325 [Percocet 5/325 MG] 1 - 2 tab PO Q6HR PRN 10/28/18 [History] Tizanidine HCl 4 mg PO QAM 10/28/18 [History] Tizanidine HCl 8 mg PO QPM 10/28/18 [History] Allergy/AdvReac Type Severity Reaction Status Date / Time Sulfa (Sulfonamide Allergy Hives Verified 10/28/18 11:55 Antibiotics) codeine AdvReac Irritable Verified 10/28/18 11:55 All Systems PM: A 10-system review of systems was performed and is negative for pertinent findings except as documented above in the HPI. - Constitutional Vitals: Temp Pulse Resp BP Pulse Ox 98.5 F 53 20 181/84 98 10/28/18 16:59 10/28/18 16:59 10/28/18 16:59 10/28/18 16:59 10/28/18 16:59 General appearance: Present: A&O X 3, no acute distress Exam: As above - Head Head exam: Present: normocephalic - Eye Eye exam: Present: normal appearance - Respiratory Respiratory exam: Present: CTAB. Absent: accessory muscle use, rales, rhonchi, wheezes - Cardiovascular Cardiovascular exam: Present: RRR, +S1, +S2. Absent: diastolic murmur, gallop, rubs, systolic murmur - GI/Abdominal GI/Abdominal exam: Present: normal bowel sounds, soft, no peritoneal signs. Absent: distended, tenderness - Extremities Exam Extremities exam: Absent: pedal edema - Neurological Exam Neurological exam: Present: oriented X3 - Psychiatric Psychiatric exam: Present: normal mood - Skin Skin exam: Present: normal color Internal Med - H&P Results - Labs CBC & Chem 7: 10/28/18 12:15 10/28/18 12:15 Labs: Short CBC 10/28/18 Range/Units 12:15 WBC 10.5 (4.3-11.1) K/mcL Hgb 13.9 (12.9-16.9) g/dL Hct 41.6 (37.5-50.1) % Plt Count 228 (140-400) K/mcL Neutrophils # 6.4 (1.6-8.9) K/mcL BMP 10/28/18 12:15 Sodium 140 Potassium 3.8 Chloride 107 Carbon Dioxide 25 BUN 32 H Creatinine 1.08 Glucose 138 H Calcium 9.7 Cardiac Enzymes 10/28/18 Range/Units 12:15 Troponin I < 0.03 (< 0.04) ng/mL - Impressions ITS Impressions Chest X-Ray 10/28/18 12:06 IMPRESSION: No acute process. D/ / Chase Cruz MD / Chase Cruz MD Interpreting Provider: Chase Cruz MD - Assessment and plan (1) Bradycardia Current Visit: Yes Status: Acute Assessment and plan: In ER patients patient was found to be bradycardic with heart rate in the 40s. Patient with significant history of coronary arterial disease as below Echocardiogram in 2017 showed LVEF of 70% with mild left ventricular diastolic dysfunction. Nuclear medicine stress tests on 05/2018 was negative for ischemia. Will order echocardiogram Cardiology was consulted from the ER and will follow the patient for recommendations. (2) CAD (coronary artery disease) Current Visit: No Status: Chronic Assessment and plan: Past medical history significant for an arterial disease with left heart catheterization on 03/2016 which showed 30% stenosis in the mid LAD, 80% stenosis in the proximal RCA, 40-50% stenosis in the mid RCA Qualifiers: Coronary Disease-Associated Artery/Lesion type: [place] artery [place] vs. transplanted heart: [place] heart Associated angina: angina presence unspecified Qualified Code(s): I25.10 - Atherosclerotic heart disease of [place] coronary artery without angina pectoris (3) Essential hypertension Current Visit: No Status: Chronic Assessment and plan: Continue home medications (4) Hyperlipidemia Current Visit: No Status: Chronic Assessment and plan: Continue home medications Qualifiers: Hyperlipidemia type: unspecified Qualified Code(s): E78.5 - Hyperlipidemia, unspecified (5) DVT prophylaxis Current Visit: No Status: Acute Assessment and plan: Subcutaneous heparin - Time Spent With Patient Total time spent is greater than 50% in coordination of care (as documented) at patient's floor/unit and/or counseling patient:
[2018-10-28] MEDS ORDERED: Nitroglycerin 0.4 MG TAB.SUBL SL PRN (18:35)
[2018-10-28] MEDS ORDERED: Naloxone 0.4 MG/ML INJ IVP PRN (18:49)
[2018-10-28] MEDS: Budesonide/Formoterol 160/4.5 1 PUFF INH IH SCH (20:10)
[2018-10-29] MEDS ORDERED: *HR* OxyCODONE Immed Rel 5 MG TABLET PO ONE (01:29)
--- NOTE | 2018-10-29 03:01 | Event Note ---
Date of Encounter: 10/29/18 Time of Encounter: 01:02 Alerted by pts. nurse PANKAJ Barroso that the pt. was complaining of back pain rated at 7/10. HR 61. BP 218/85. Pt. was admitted for hypotension and bradycardia. One-time dose of oxycodone 5 mg immediate release ordered w/instructions to monitor pts. pain and BP Q15MIN x4 to see if both responded to the pain medication. First BP reading following oxycodone was 185/89. HR 61. Pt. reports HR is always in 50s to 60s. Nurse instructed to continue w/BP checks and alert me immediately of any adverse changes.
[2018-10-29 03:56] LABS: Basophils # 0.1 K/mcL (0.0-0.2); Basophils % 0.6 %; Eosinophils # 0.6 K/mcL (0.0-0.6); Eosinophils % 5.8 %; Hematocrit 43.4 % (37.5-50.1); Hemoglobin 14.5 g/dL (12.9-16.9); Lymphocytes # 2.2 K/mcL (0.6-4.6); Lymphocytes % 19.9 %; Mean Corpuscular HGB Conc 33.4 g/dL (31.6-35.5); Mean Corpuscular Hemoglobin 30.7 pg (28.0-33.3); Mean Corpuscular Volume 91.9 fL (83.0-100.0); Monocytes # 1.4 K/mcL (0.0-1.3); Monocytes % 12.2 %; Neutrophils # 6.7 K/mcL (1.6-8.9); Platelet Count 195 K/mcL (140-400); Red Blood Count 4.72 M/mcL (4.19-5.50); Red Cell Distribution Width 11.8 % (11.5-14.5); Segmented Neutrophils % 60.5 %
[2018-10-29 04:16] LABS: BUN/Creatinine Ratio 30 (6-26); Blood Urea Nitrogen 23 mg/dL (8-23); Carbon Dioxide 24 mEq/L (23-29); Chloride 108 mEq/L (98-107); Glucose 114 mg/dL (70-105); Osmolality,Calculated 291 (280-300); Potassium 3.6 mEq/L (3.5-5.1); Sodium 138 mEq/L (136-145); eGFR For Non-African Americans > 60 (> 60)
[2018-10-29] MEDS: Isosorbide MONOnitrate (24 HR) 30 MG TAB.ER.24H PO SCH (07:50)
[2018-10-29] MEDS ORDERED: *HR* OxyCODONE/APAP 5/325 TABLET PO PRN (08:05)
[2018-10-29] MEDS: tiZANidine 4 MG TABLET PO SCH (08:51)
[2018-10-29] MEDS: *HR* OxyCODONE/APAP 10/325 TABLET PO PRN ×2 (08:52→18:56)
[2018-10-29] MEDS ORDERED: amLODIPine 5 MG TABLET PO SCH (09:00)
[2018-10-29] MEDS ORDERED: 0.9 % Sodium Chloride 1,000 ML ONE (10:13)
[2018-10-29] MEDS ORDERED: 0.9 % Sodium Chloride 1,000 ML IVC ONE (10:20)
[2018-10-29] MEDS: Budesonide/Formoterol 160/4.5 1 PUFF INH IH SCH ×2 (10:21→22:19)
--- NOTE | 2018-10-29 11:09 | Internal Med Progress Note ---
Hospitalist Progress Note - Encounter Date of Encounter: 10/29/18 Time of Encounter: 11:07 - Subjective Interval History: Patient seen and examined at bedside. Patient states that he feels better today. He feels like the pounding in his chest is resolved. He denies any chest pain, shortness of breath. - Exam Vitals: Temp Pulse Resp BP Pulse Ox 98.3 F 46 18 82/48 95 10/29/18 10:44 10/29/18 10:44 10/29/18 10:44 10/29/18 10:44 10/29/18 10:44 Exam: Gen.: Alert and oriented 3, no acute distress Heart: Regular rate and rhythm, no murmurs, rubs, gallops. No edema noted Lungs: Clear to auscultation bilaterally, no rales, rhonchi, wheezes Abdomen: Soft, nontender, nondistended, normal active bowel sounds - Assessment and Plan (1) Bradycardia Current Visit: Yes Status: Acute Assessment and Plan: Bradycardia initially improved however this morning he was noted to have a heart rate again in the 40s with hypotension. He was symptomatic with dizziness and near syncope. Likely due to beta abbey. We will stop beta abbey for now. Patient given IV fluids for hypotension. We will continue to closely monitor her heart rate and blood pressure. (2) Essential hypertension Current Visit: Yes Status: Chronic Assessment and Plan: Patient is noted to have very labile blood pressure, earlier this morning his systolic was noted to be in the 200s and then after treatment his heart rate and blood pressure dropped and systolic blood pressure was noted to be in the 60s. Blood pressure improved with IV fluids. I have asked the nurses to complete [facility] blood pressures for this patient. Given his bradycardia we will discontinue beta abbey. Continue amlodipine and losartan with instructions to hold for systolic blood pressure less than 110. If patient remains hypertensive then we will consider adding hydrochlorothiazide and will avoid beta blockers in this patient given his bradycardia. (3) CAD (coronary artery disease) Current Visit: No Status: Chronic Assessment and Plan: Stable. No active chest pain. EKG reviewed and showed no ischemic changes, troponin negative. Repeat echocardiogram pending. (4) DVT prophylaxis Current Visit: No Status: Acute Assessment and Plan: Heparin 5000 units subcutaneous twice a day - Time Spent with Patient Total time spent is greater than 50% in coordination of care (as documented) at patient's floor/unit and/or counseling patient: Internal Medicine: Result - Labs CBC & Chem 7: 10/29/18 03:15 10/29/18 03:15 Labs: Short CBC 10/28/18 10/29/18 Range/Units 12:15 03:15 WBC 10.5 11.1 (4.3-11.1) K/mcL Hgb 13.9 14.5 (12.9-16.9) g/dL Hct 41.6 43.4 (37.5-50.1) % Plt Count 228 195 (140-400) K/mcL Neutrophils # 6.4 6.7 (1.6-8.9) K/mcL BMP 10/28/18 10/29/18 12:15 03:15 Sodium 140 138 Potassium 3.8 3.6 Chloride 107 108 H Carbon Dioxide 25 24 BUN 32 H 23 Creatinine 1.08 0.76 Glucose 138 H 114 H Calcium 9.7 9.0 Cardiac Enzymes 10/28/18 10/28/18 10/29/18 Range/Units 12:15 20:45 03:15 Troponin I < 0.03 < 0.03 < 0.03 (< 0.04) ng/mL 10/29/18 Range/Units 09:09 Troponin I < 0.03 (< 0.04) ng/mL - Impressions Impressions Chest X-Ray 10/28/18 12:06 IMPRESSION: No acute process. D/ / Chase Cruz MD / Chase Cruz MD Interpreting Provider: Chase Cruz MD Consult Discharge Plan - Plan Referrals: Tab Starks Jr, MD [Primary Care Provider] - (3) CAD (coronary artery disease) Qualifiers: Coronary Disease-Associated Artery/Lesion type: [place] artery [place] vs. transplanted heart: [place] heart Associated angina: angina presence unspecified Qualified Code(s): I25.10 - Atherosclerotic heart disease of [place] coronary artery without angina pectoris
[2018-10-29] MEDS ORDERED: Perflutren Lipid Microsphere 1.3 ML in 0.9 % Sodium Chloride 8.7 ML IVP ONE (12:07)
--- NOTE | 2018-10-29 18:05 | Electrocardiograph Report ---
[address] [address] Test Date: 2018-10-28 Pat Name: Russel Lewis Department: [id number] Room: 2A Gender: M [employer] In[employer]: : [id number] Requested By: Irineo Rodríguez Order Number: [id number] Reading MD: Argentina Cadena Measurements Intervals [place] Rate: 47 P: 102 ID: [id number] QRS: 46 QRSD: 106 T: 48 QT: 450 QTc: 398 Interpretive Statements Sinus bradycardia Electronically Signed On 10-29-2018 18:04:23 EST by Argentina Cadena
[2018-10-29] MEDS: *HR* Heparin 5,000 UNIT/ML VIAL SQ SCH (18:51)
[2018-10-29] MEDS ORDERED: tiZANidine 4 MG TABLET PO SCH (21:00)
[2018-10-30] MEDS: *HR* Heparin 5,000 UNIT/ML VIAL SQ SCH (05:16)
[2018-10-30 06:29] LABS: BUN/Creatinine Ratio 25 (6-26); Blood Urea Nitrogen 17 mg/dL (8-23); Calcium 8.8 mg/dL (8.6-10.3); Carbon Dioxide 23 mEq/L (23-29); Chloride 106 mEq/L (98-107); Glucose 174 mg/dL (70-105); Magnesium 1.8 mg/dL (1.6-2.6); Osmolality,Calculated 290 (280-300); Potassium 3.9 mEq/L (3.5-5.1); Sodium 137 mEq/L (136-145); eGFR For Non-African Americans > 60 (> 60)
[2018-10-30 07:27] VITALS: BP 150/78
[2018-10-30] MEDS: Budesonide/Formoterol 160/4.5 1 PUFF INH IH SCH (07:52)
[2018-10-30] MEDS ORDERED: amLODIPine 5 MG TABLET PO SCH ×2 (09:00)
[2018-10-30] MEDS: tiZANidine 4 MG TABLET PO SCH (09:09)
[2018-10-30] MEDS: Isosorbide MONOnitrate (24 HR) 30 MG TAB.ER.24H PO SCH (09:09)
--- NOTE | 2018-10-30 09:19 | Discharge Summary ---
Date of Encounter: 10/30/18 Time of Encounter: 09:17 - Discharge Diagnosis (1) Hyperlipidemia Priority: Secondary Status: Chronic Qualifiers: Hyperlipidemia type: unspecified Qualified Code(s): E78.5 - Hyperlipidemia, unspecified (2) Morbid obesity Priority: Secondary Status: Chronic (3) Bradycardia Priority: Primary Status: Acute (4) Essential hypertension Priority: Secondary Status: Chronic Hospital course: Patient is a 68-year-old male with past medical history significant for an arterial disease with left heart catheterization on 03/2016 which showed 30% stenosis in the mid LAD, 80% stenosis in the proximal RCA, 40-50% stenosis in the mid RCA and hypertension who presents to the ER on 10/28/18 due to weakness. Patient reports of after shoveling snow he experienced weakness and therefore checked his blood pressures. Patient noticed that his blood pressures gradually decreased, was hypotensive, noticed that his heart rate decreased and was bradycardic. Patient was brought in to the ER for further evaluation. In ER patients patient was found to be bradycardic with heart rate in the 40s. Echocardiogram in 2016 showed LVEF of 70% with mild left ventricular diastolic dysfunction. Nuclear medicine stress tests on 05/2018 was negative for ischemia. (1) Bradycardia Current Visit: Yes Status: Acute Assessment and Plan: Bradycardia initially improved however, he received coreg 12.5 mg at 750 am, his heart rate again in the 40s with hypotension. He was symptomatic with dizziness and near syncope. Likely due to beta [place]bey. BP and HR improved after stopped coreg, he has been asymptomatic and walked in the [place]. (2) Essential hypertension Current Visit: Yes Status: Chronic Assessment and Plan: Patient is noted to have very labile blood pressure, earlier this morning his systolic was noted to be in the 200s and then after treatment his heart rate and blood pressure dropped and systolic blood pressure was noted to be in the 60s. Blood pressure improved with IV fluids. Continue amlodipine and losartan with instructions to hold for systolic blood pressure less than 110. Patient is instructed to compliant low salt diet, increased amlodipine to 10 mg daily, follow up with PCP in 2-3 days (3) CAD (coronary artery disease) Current Visit: No Status: Chronic Assessment and Plan: Stable. No active chest pain. EKG reviewed and showed no ischemic changes, troponin negative. Repeat echocardiogram showed EF 65-70%, mild diastolic dys function. (4) DVT prophylaxis Current Visit: No Status: Acute Assessment and Plan: Heparin 5000 units subcutaneous twice a day (5) Morbid obesity with BMI 38, lifestyle modification discussed Discharge discussed with: patient - Time Spent with Patient Total time spent providing and/or coordinating discharge services: Greater than 30 minutes - Discharge Medications Prescriptions: amLODIPine [Norvasc] 10 mg PO DAILY #60 tablet Home Medications: Isosorbide MONOnitrate (24 HR) [Imdur] 30 mg PO DAILY #30 tab.er.24h 03/13/16 [Rx] Nitroglycerin 0.4 mg SL Q5MIN PRN #30 tab.subl 03/13/16 [Rx] Albuterol Sulfate [Proair Hfa] 1 - 2 puff IH Q6H PRN 03/23/16 [History] Losartan Potassium [Cozaar] 100 mg PO DAILY 03/23/16 [History] Budesonide/Formoterol 160/4.5 [Symbicort 160/4.5] 2 puff IH BIDR 02/10/18 [History] Ibuprofen 800 mg PO TID PRN 02/10/18 [History] OxyCODONE/APAP 5/325 [Percocet 5/325 MG] 1 - 2 tab PO Q6HR PRN 10/28/18 [History] Tizanidine HCl 4 mg PO QAM 10/28/18 [History] Tizanidine HCl 8 mg PO QPM 10/28/18 [History] amLODIPine [Norvasc] 10 mg PO DAILY #60 tablet 10/30/18 [Rx] Allergies/Adverse Reactions: Allergy/AdvReac Type Severity Reaction Status Date / Time Sulfa (Sulfonamide Allergy Hives Verified 10/28/18 11:55 Antibiotics) codeine AdvReac Irritable Verified 10/28/18 11:55 Date of admission: 10/30/18 08:26 Primary care physician: Tab Starks Jr, MD - Constitutional Vitals: Temp Pulse Resp BP Pulse Ox 98.3 F 57 16 150/78 97 10/30/18 07:19 10/30/18 07:19 10/30/18 07:53 10/30/18 07:19 10/30/18 07:53 General appearance: Present: A&O X 3, no acute distress Exam: CONSTITUTIONAL: patient appears as an age appropriate male in no acute distress. EYES Clear sclerae, bilateral pupils are equal, reactive to light. EMOI. RESPIRATORY: No accessory muscle use, bilateral clear to auscultation, no wheezing, no crackles/rales. CARDIOVASCULAR: Regular heart rate, normal S1 and S2, no murmurs GASTROINTESTINAL: bowel sounds present, soft, no tenderness. MUSCULOSKELETAL: Joints in normal range of motion, no clubbing, no edema, no cyanosis. Bilateral peripheral pulses 2+. NEUROLOGIC: CN II to XII are grossly intact, no focal neurological deficit. - Patient Status Disposition: Home, Self-Care Functional capacity at discharge: independent ambulation Overall status at discharge: patient is back to baseline - Discharge Instructions Follow Up With: Tab Starks Jr, MD [Primary Care Provider] - Additional Instructions: for hypertension, coreg d/maría due to symptomatic bradycardia - Diet and Activity Diet: low fat, low cholesterol, low salt diet
== END 2018-10-30 10:24 | disposition home or self-care (01) | DRG 310 ==
LOC: 2ANU 11:50 → EMEROOARM 11:50 → 2ANU 16:38 → SUATTDRO 10-30 08:26
PROVIDERS: ADMIT Hospitalist; ATTEND Hospitalist